=== PATIENT | male | born 1940 | race Caucasian/White ===

== ENCOUNTER → 2018-01-13 | Outpatient (CLI) | payer MEDICARE, OTHER ==
--- NOTE | 2018-01-13 07:57 | MR ---
EXAMINATION TYPE: MR lumbar spine wo con DATE OF EXAM: 01/13/2018 COMPARISON: NONE HISTORY: Low back pain/groin pain per patient since July 2017 going into bilateral buttocks. Arth ropathy of lumbar facet joint or Inflammatory spondylopathy lumbar region per order. TECHNIQUE: Multiplanar, multisequence imaging of the lumbar spine is performed without IV contrast. FINDINGS: Survey images shows artifact from bilateral hip region likely from metallic hardware. Sagit ez images of the lumbar spine show vertebral body heights heights to remain satisfactory. There is g rade 1 anterolisthesis of L5 on S1. Spine is straightened. Multilevel disc desiccation with fairly mo derate to advanced multilevel disc space narrowing is seen. There are posterior disc herniations L1-L 2 and L3-L4 levels effacing anterior thecal sac on sagittal images. The conus medullaris is normal i n position and signal ending superior L1 level. There is moderate to severe multilevel anterior and l ateral spurring. There is heterogeneous increased T1 and T2 signal consistent with Modic type II dege nerative change L2-L3 level. Axial images at T12-L1 level show mild to moderate facet degenerative changes bilaterally. There is m oderate broad disc bulge effacing anterior thecal sac on axial image 29. Bilateral neural foramina re main patent. Axial images at L1-L2 level show severe broad disc bulge with central disc protrusion effacing anteri or thecal sac on axial image 24. There is moderate facet degenerative changes and ligament flavum hyp ertrophy effacing posterior lateral thecal sac. There is moderate right and mild to moderate left-diamond ed neural foraminal narrowing at this level identified. Axial images at L2-L3 level show moderate broad disc bulge effacing anterior thecal sac with mild to moderate facet degenerative changes bilaterally. There is mild to moderate bilateral anterior inferio r neural foraminal narrowing at this level identified. Axial images at L3-L4 level show moderate to severe broad based posterior disc protrusion effacing an terior thecal sac on axial image 14. There is mild facet degenerative changes bilaterally. There is m ild left greater than right anterior-inferior neural foraminal narrowing at this level identified. Axial images at L4-L5 level show moderate facet degenerative changes bilaterally. There is moderate b road disc bulge seen effacing anterior thecal sac. There is slightly more prominent right foraminal a nd lateral disc protrusion component. There is mild left-sided neural foraminal narrowing. There is m oderate to severe right-sided neural foraminal narrowing with encroachment on right L4 nerve felt pre sent on sagittal image 12 and axial image 9. Axial images at L5-S1 level show spondylolisthesis and moderate to advanced facet degenerative change s bilaterally. There is central disc protrusion seen. Spinal canal is preserved. There is moderate to severe left greater than right neural foraminal narrowing with some encroachment inferior left L5 ne rve felt present sagittal image 3 and on the anterior aspect right L5 nerve felt present sagittal ady ge 14. No suspicious retroperitoneal findings are identified. Paraspinal muscle bulk is preserved. IMPRESSION: Straightening of lumbar spine with spondylolisthesis L5-S1 level. Multilevel degenerative changes as detailed above, most prominent spinal canal effacement or stenosis is L1-L2 level. Most p rominent neural foraminal narrowing and encroachment is lower lumbar levels.
== END | disposition home or self-care (01) ==
LOC: RADMRIMAIN 06:52
PROVIDERS: ATTEND Family Medicine
DX: M48.061 Spinal stenosis, lumbar region without neurogenic claudication (principal); M99.73 Connective tissue and disc stenosis of intervertebral foramina of lumbar region; M43.17 Spondylolisthesis, lumbosacral region; M47.817 Spondylosis without myelopathy or radiculopathy, lumbosacral region
CPT/HCPCS: 72148

== ENCOUNTER 2018-08-22 09:14 | Inpatient (IN) | payer MEDICARE, OTHER ==
[2018-08-22] MEDS ORDERED: SODIUM CHLORIDE 0.9% 500 ML 500 ML IV STA (09:51)
[2018-08-22] MEDS ORDERED: METOCLOPRAMIDE 5 MG/ML 2 ML VIAL IVP STA (09:52)
[2018-08-22] MEDS ORDERED: MECLIZINE 12.5 MG TAB PO STA (09:52)
--- NOTE | 2018-08-22 10:10 | ED ---
General Adult HPI - General Chief complaint: Dizziness Stated complaint: vertigo Time Seen by Provider: 08/22/18 09:32 Source: patient, family, RN notes reviewed Mode of arrival: wheelchair Limitations: no limitations - History of Present Illness Initial comments: Patient is a pleasant 78-year-old male presenting to the emergency department with dizziness. Onset of symptoms was 4 days ago. Symptoms onset was fairly sudden. Symptoms do continue. Symptoms are worse with movement and upright position. Symptoms improved with lying down. Patient feels like he is spinning. Patient has had some associated nausea and vomiting. Patient has not been taking in as much oral intake as normal. Patient denies any confusion. Patient denies any weakness. Patient states it has been difficult to walk secondary to dizziness only. states patient did have some slurred speech the first 2 days of symptoms as well as his words and his sentences were mismatched. She has not noticed this in the past 2 days. - Related Data Home Medications Medication Instructions Recorded Confirmed Losartan/Hydrochlorothiazide 1 tab PO DAILY 08/22/18 08/22/18 [Hyzaar 100-12.5 Tablet] Allergies Allergy/AdvReac Type Severity Reaction Status Date / Time No Known Allergies Allergy Verified 08/22/18 11:58 Review of Systems ROS Statement: Those systems with pertinent positive or pertinent negative responses have been documented in the HPI. ROS Other: All systems not noted in ROS Statement are negative. Constitutional: Denies: fever Eyes: Denies: eye pain ENT: Denies: ear pain Respiratory: Denies: cough Cardiovascular: Denies: chest pain Endocrine: Denies: fatigue Gastrointestinal: Reports: nausea, vomiting. Denies: abdominal pain Genitourinary: Denies: dysuria Musculoskeletal: Denies: back pain Skin: Denies: rash Neurological: Reports: as per HPI, vertigo. Denies: headache, weakness Past Medical History Past Medical History: Hypertension History of Any Multi-Drug Resistant Organisms: None Reported Past Surgical History: Hernia Repair, Orthopedic Surgery Additional Past Surgical History / Comment(s): Bilateral Hip Replacement, Knee Replacement Past Psychological History: No Psychological Hx Reported Smoking Status: Never smoker Past Alcohol Use History: Occasional Past Drug Use History: None Reported General Exam Limitations: no limitations General appearance: alert, in no apparent distress Head exam: Present: atraumatic Eye exam: Present: normal appearance, PERRL, EOMI. Absent: nystagmus ENT exam: Present: normal oropharynx Neck exam: Present: normal inspection Respiratory exam: Present: normal lung sounds bilaterally Cardiovascular Exam: Present: regular rate, normal rhythm Expanded Peripheral pulses: 2+: Radial (R), Radial (L), Dorsalis Pedis (R), Dorsalis Pedis (L) GI/Abdominal exam: Present: soft. Absent: tenderness Extremities exam: Present: normal inspection. Absent: pedal edema, calf tenderness Neurological exam: Present: alert, oriented X3, CN II-XII intact. Absent: motor sensory deficit Expanded Neurological exam: Present: protecting the airway Speech: Present: fluid speech Cerebellar function: Finger to Nose: Normal Sensory exam: Upper Extremity Light Touch: Normal, Lower Extremity Light Touch: Normal Motor strength exam: RUE: 5, LUE: 5, RLE: 5, LLE: 5 Eye Response: (4) open spontaneously Motor Response: (6) obeys commands Verbal Response: (5) oriented Psychiatric exam: Present: normal affect, normal mood Skin exam: Present: normal color Course Vital Signs 08/22/18 08/22/18 08/22/18 09:18 09:31 10:00 Temperature 98.3 F Pulse Rate 73 49 L 49 L Respiratory 18 Rate Blood Pressure 161/120 163/99 O2 Sat by Pulse 99 96 95 Oximetry 08/22/18 08/22/18 08/22/18 10:30 11:00 11:30 Temperature Pulse Rate 52 L Respiratory Rate Blood Pressure 170/116 174/108 O2 Sat by Pulse 100 Oximetry EKG Findings - EKG Comments: EKG Findings:: Sinus bradycardia at 48. First-degree AV block IA of 216. QRS 112. QT 462. QTC 412. Left axis. Lateral T wave inversion. Normal QRS. Medical Decision Making - Medical Decision Making Patient reevaluated and resting comfortably in bed. Patient states symptoms around any percent improved. There is some concern for potential posterior infarct and concerned with patient's speech problems. It is felt the patient would best be served to be evaluated by neurology. Case was discussed in detail with Dr. Sarmiento, covering for Dr. agudelo, who admits for Dr. zhao, who will admit. Patient and family are specifically made aware of aneurysms of aorta and need for follow-up with this. - Lab Data Result diagrams: 08/22/18 10:02 08/22/18 10:02 Lab Results 08/22/18 08/22/18 08/22/18 Range/Units 10:02 10:02 10:02 WBC 5.2 (3.8-10.6) k/uL RBC 5.05 (4.30-5.90) m/uL Hgb 13.4 (13.0-17.5) gm/dL Hct 42.7 (39.0-53.0) % MCV 84.5 (80.0-100.0) fL MCH 26.6 (25.0-35.0) pg MCHC 31.4 (31.0-37.0) g/dL RDW 13.2 (11.5-15.5) % Plt Count 197 (150-450) k/uL Neutrophils % 71 % Lymphocytes % 17 % Monocytes % 7 % Eosinophils % 1 % Basophils % 1 % Neutrophils # 3.7 (1.3-7.7) k/uL Lymphocytes # 0.9 L (1.0-4.8) k/uL Monocytes # 0.4 (0-1.0) k/uL Eosinophils # 0.1 (0-0.7) k/uL Basophils # 0.0 (0-0.2) k/uL PT (9.0-12.0) sec INR (<1.2) APTT (22.0-30.0) sec Sodium 140 (137-145) mmol/L Potassium 3.3 L (3.5-5.1) mmol/L Chloride 105 (98-107) mmol/L Carbon Dioxide 28 (22-30) mmol/L Anion Gap 7 mmol/L BUN 12 (9-20) mg/dL Creatinine 0.69 (0.66-1.25) mg/dL Est GFR (CKD-EPI)AfAm >90 (>60 ml/min/1.73 sqM) Est GFR (CKD-EPI)NonAf >90 (>60 ml/min/1.73 sqM) Glucose 102 H (74-99) mg/dL Calcium 9.1 (8.4-10.2) mg/dL Total Bilirubin 0.8 (0.2-1.3) mg/dL AST 25 (17-59) U/L ALT 39 (21-72) U/L Alkaline Phosphatase 39 (38-126) U/L Total Creatine Kinase 167 (55-170) U/L CK-MB (CK-2) 2.0 (0.0-2.4) ng/mL CK-MB (CK-2) Rel Index 1.2 Troponin I <0.012 (0.000-0.034) ng/mL Total Protein 6.0 L (6.3-8.2) g/dL Albumin 3.7 (3.5-5.0) g/dL 08/22/18 Range/Units 10:02 WBC (3.8-10.6) k/uL RBC (4.30-5.90) m/uL Hgb (13.0-17.5) gm/dL Hct (39.0-53.0) % MCV (80.0-100.0) fL MCH (25.0-35.0) pg MCHC (31.0-37.0) g/dL RDW (11.5-15.5) % Plt Count (150-450) k/uL Neutrophils % % Lymphocytes % % Monocytes % % Eosinophils % % Basophils % % Neutrophils # (1.3-7.7) k/uL Lymphocytes # (1.0-4.8) k/uL Monocytes # (0-1.0) k/uL Eosinophils # (0-0.7) k/uL Basophils # (0-0.2) k/uL PT 10.5 (9.0-12.0) sec INR 1.0 (<1.2) APTT 22.4 (22.0-30.0) sec Sodium (137-145) mmol/L Potassium (3.5-5.1) mmol/L Chloride (98-107) mmol/L Carbon Dioxide (22-30) mmol/L Anion Gap mmol/L BUN (9-20) mg/dL Creatinine (0.66-1.25) mg/dL Est GFR (CKD-EPI)AfAm (>60 ml/min/1.73 sqM) Est GFR (CKD-EPI)NonAf (>60 ml/min/1.73 sqM) Glucose (74-99) mg/dL Calcium (8.4-10.2) mg/dL Total Bilirubin (0.2-1.3) mg/dL AST (17-59) U/L ALT (21-72) U/L Alkaline Phosphatase (38-126) U/L Total Creatine Kinase (55-170) U/L CK-MB (CK-2) (0.0-2.4) ng/mL CK-MB (CK-2) Rel Index Troponin I (0.000-0.034) ng/mL Total Protein (6.3-8.2) g/dL Albumin (3.5-5.0) g/dL - Radiology Data Radiology results: report reviewed (Computed tomography scan of the brain shows no acute process. CTA shows mild aneurysmal dilation of aortic arch up to 3.4 cm.), image reviewed (Chest x-ray shows no acute process) Disposition Clinical Impression: Vertigo Disposition: ADMITTED IP TO THIS HOSP Is patient prescribed a controlled substance at d/c from ED?: No Referrals: Wyatt Louise MD [Primary Care Provider] - 1-2 days Decision Time: 12:21
[2018-08-22 10:17] LABS: Basophils % (A) 1 %; Eosinophils # (A) 0.1 k/uL (0-0.7); Eosinophils % (A) 1 %; HCT 42.7 % (39.0-53.0); HGB 13.4 gm/dL (13.0-17.5); Lymphocytes # (A) 0.9 k/uL (1.0-4.8); Lymphocytes % (A) 17 %; MCH 26.6 pg (25.0-35.0); MCHC 31.4 g/dL (31.0-37.0); MCV 84.5 fL (80.0-100.0); Mean Platelet Volume 7.3; Monocytes # (A) 0.4 k/uL (0-1.0); Monocytes % (A) 7 %; Neutrophils # (A) 3.7 k/uL (1.3-7.7); Neutrophils % (A) 71 %; Platelet Count 197 k/uL (150-450); RBC 5.05 m/uL (4.30-5.90); RDW 13.2 % (11.5-15.5); WBC 5.2 k/uL (3.8-10.6)
[2018-08-22 10:23] LABS: Partial Thromboplastin Time 22.4 sec (22.0-30.0); Prothrombin Time 10.5 sec (9.0-12.0)
[2018-08-22 10:25] LABS: ALT 39 U/L (21-72); AST 25 U/L (17-59); Albumin 3.7 g/dL (3.5-5.0); Alkaline Phosphatase 39 U/L (38-126); Anion Gap 7 mmol/L; Blood Urea Nitrogen 12 mg/dL (9-20); Calcium 9.1 mg/dL (8.4-10.2); Carbon Dioxide 28 mmol/L (22-30); Chloride 105 mmol/L (98-107); Glucose 102 mg/dL (74-99); Potassium 3.3 mmol/L (3.5-5.1); Sodium 140 mmol/L (137-145); Total Bilirubin 0.8 mg/dL (0.2-1.3)
[2018-08-22 10:42] LABS: Creatine Kinase 167 U/L (55-170)
[2018-08-22] MEDS: SODIUM CHLORIDE 0.9% 1,000 ML IV STA ×2 (10:47→17:28)
[2018-08-22 10:55] LABS: Troponin I <0.012 ng/mL (0.000-0.034)
[2018-08-22] MEDS ORDERED: ENALAPRILAT 1.25 MG/ML 1 ML VIAL IVP STA (10:58)
--- NOTE | 2018-08-22 11:40 | XR ---
EXAMINATION TYPE: XR chest 2V DATE OF EXAM: 08/22/2018 HISTORY: altered mental status. REFERENCE: None. FINDINGS: There are senescent changes within the lungs. The heart is not enlarged. Pleural spaces are clear. IMPRESSION: NO ACUTE INTRATHORACIC ABNORMALITY.
--- NOTE | 2018-08-22 11:59 | CT ---
EXAMINATION TYPE: CT brain wo con DATE OF EXAM: 08/22/2018 COMPARISON: NONE HISTORY: VERTIGO CT DLP: 1251.0 mGycm Automated exposure control for dose reduction was used. FINDINGS: Central structures are midline. There is no evidence of hydrocephalus. No acute focal lesion, mass ef fect or midline shift is seen. I do not see evidence of intracranial blood. Visualized portions of the paranasal sinuses and mastoids are clear. IMPRESSION: NO ACUTE INTRACRANIAL ABNORMALITY.
--- NOTE | 2018-08-22 12:08 | CT ---
EXAMINATION TYPE: CT angio head neck DATE OF EXAM: 08/22/2018 HISTORY: VERTIGO/ NEURO DEFICITS COMPARISON: None. CT DLP: 515 mGycm. Automated Exposure Control for Dose Reduction was Utilized. TECHNIQUE: CTA scan of the neck is performed with IV Contrast, patient injected with 65 mL of Isovue 370, axial images are obtained, coronal and sagittal reformatted images are reviewed. Three-D recons tructed images are created on an independent workstation and reviewed. FINDINGS: Visualized portions of the lungs are clear. There is aneurysmal dilatation of the proximal aortic arch which measures 3.4 cm. There is aneurysmal dilatation of the distal aortic arch which measures 3.3 cm. Soft tissue views of the neck are unremarkable. The major salivary glands appear unremarkable. There is no significant adenopathy. There is a retrograde listhesis of C4 on C5 and C5 on C6. There is marked hypertrophic spondylosis at these 2 levels. Atlantoaxial relationships are normal. There is disc space loss most marked at C4-5, C5-6 and C6-7. No definite protrusion is seen. Visualized portions of the paranasal sinuses and mastoids are clear. There is underaeration of the ri ght-sided mastoids which may be due to chronic right-sided mastoiditis. There is a normal origin of the great vessels. The right vertebral artery is dominant. There is no si gnificant atheromatous plaque in either carotid bifurcations. There is no significant stenosis in eit her bifurcation. 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 There is normal arborization of the middle cerebral arteries bilaterally. The posteri or circulation has a normal appearance. There is no sizable aneurysm. IMPRESSION: 1. NO SIGNIFICANT CAROTID STENOSIS. 2. NORMAL-APPEARING CTA OF THE [place] RESERVATION OF [place]. 3. THORACIC AORTIC ANEURYSM.
[2018-08-22] MEDS ORDERED: ASPIRIN 325 MG TAB PO STA (12:21)
[2018-08-22] MEDS ORDERED: SODIUM CHLORIDE 0.9% 1,000 ML IV SCH (12:30)
[2018-08-22] MEDS ORDERED: HYDROCHLOROTHIAZIDE 12.5 MG CAP PO SCH (12:30)
[2018-08-22] MEDS: LOSARTAN 50 MG TAB PO SCH (13:05)
--- NOTE | 2018-08-22 14:51 | P.HPIM ---
History of Present Illness Chief Complaint: Dizziness 78-year-old male with history of hypertension complaining of dizziness that started approximately 4-5 days ago. Patient states that he was in usual state of health when he started developing dizziness this he describes as the completely spinning sensation but sensation of falling through the ground. Necessarily did not experience sensation of room spinning but rather him spinning. This was accompanied by nausea. He describes this episodes being quite intense when they started lasting couple minutes and then subsiding on its own. He felt that particularly certain movements of the head would bring them up like looking toward the right side or going from sitting up down to laying down or sometimes when he didn't get up and turn his head. He also noticed when he is turning in the bed cessation will come back. M eventually after that first day symptoms improved and there were minimal but then then again on the day of admission reoccurred in a similar fashion described ear that point she decided to come to emergency department He denies any double vision, headache, hearing problems, tinnitus, tremor, difficulties in ambulation or neck stiffness he feels that his speech did not change but he was told by his that he might have some changes in his speech. He also feels that sometimes his heart for him to find the right words. He denies any recent illnesses URI-like symptoms sinusitis or earaches. He denies any focal weakness in any of the arms or limbs. In emergency department he was found to have elevated blood pressure 170s. His heart rate was in 50s although he has measurements in 70s. There are no any electrolyte these balances. EKG showed sinus bradycardia with first-degree AV block. CT of the head was unremarkable CT of the head was without any obstructions. He was then admitted for further neurological evaluation. Review of Systems Constitutional: Patient reports no fever, no chills, no weight changes, no change in appetite Eyes: Patient reports no double vision, no visual changes ENT: Patient reports no rhinorrhea, no post nasal drip, no sore throat Cardiovascular: Patient reports no chest, no edema, no palpitations, no syncope , no orthopnea, no paroxysmal nocturnal dyspnea. Respiratory: Patient reports no dyspnea, no cough, no wheeze Gastrointestinal: Patient reports no nausea, no vomiting, no constipation, no diarrhea Genitourinary: Patient reports no dysuria, no urinary frequency, no hematuria. Musculoskeletal: Patient reports no unusual joint pain, no joint swelling or weakness. Patient reports no muscular pain. Psychiatric: Patient reports no changes in mood, no sleeping problems. Patient reports no changes in memory. Endocrine: Patient reports no thirst, no polyuria, no cold intolerance, no heat intolerance. Neurological: As per HPI Heme/Lymphatic: Patient reports no easy bruising, no bleeding tendency, no lymphadenopathy. Allergic/ Immunologic: Patient reports no recent allergic reactions or immunologic history. Skin: Patient reports no rashes or unusual lesions. Past Medical History Past Medical History: Hypertension History of Any Multi-Drug Resistant Organisms: None Reported Past Surgical History: Hernia Repair, Orthopedic Surgery Additional Past Surgical History / Comment(s): Bilateral Hip Replacement, Knee Replacement Past Psychological History: No Psychological Hx Reported Smoking Status: Never smoker Past Alcohol Use History: Occasional Past Drug Use History: None Reported Medications and Allergies Home Medications Medication Instructions Recorded Confirmed Type Losartan/Hydrochlorothiazide 1 tab PO DAILY 08/22/18 08/22/18 History [Hyzaar 100-12.5 Tablet] Allergies Allergy/AdvReac Type Severity Reaction Status Date / Time No Known Allergies Allergy Verified 08/22/18 11:58 Physical Exam Vitals: Vital Signs Temp Pulse Resp BP Pulse Ox 08/22/18 11:30 100 08/22/18 11:00 174/108 08/22/18 10:30 52 L 170/116 08/22/18 10:00 49 L 163/99 95 08/22/18 09:31 49 L 96 08/22/18 09:18 98.3 F 73 18 161/120 99 Intake and Output 08/21/18 08/22/18 08/22/18 22:59 06:59 14:59 Other: Weight 108.862 kg Vital Signs: I have reviewed the vital signs. GENERAL: Well-nourished, Well-developed , no apparent distress, cooperative Eyes: PERRL, extraoculry movements intact, clear conjunctiva Head: : Atraumatic external nose and ears, oropharyngeal mucosa is moist without lesions or exudates Neck: Symmetric, trachea midline, No thyromegaly, no masses or neck vain pulsation, no neck rigidity CVS: +S1/S2, No murmurs or gallops. Peripheral pulses 2+ and equal in all extremities. RESP: Unlabored respiratory effort. Clear to auscultation bilaterally. Abdomen: Bowel sounds present in all 4 quadrants, Soft to palpation, Nontender/ Nondistended, No hepatosplenomegaly, no hernias or masses, no CVA tnderness Musculoskeletal: Extremities w/o deformity, No cyanosis or clubbing, no joint swelling Skin: Warm, Dry. No rashes or lesions Neuro: chemical tester II-XII grossly intact, motor strenght 5/5 i upper and lower extremities, no clonus, patellar DTRs 2+ and sympetrical On [place]-Hallpike maneuver patient did report some dizziness and nausea with face turning to the left but I was not able to observe any nystagmus at that point Of note the the maneuver was of limited success due to difficulties for patient to follow and participated during this exam Psych: Awake, Alert, & Oriented (AAO) x3 Appropriate mood and affect Results CBC & Chem 7: 08/22/18 10:02 08/22/18 10:02 Labs: Abnormal Lab Results - Last 24 Hours (Table) 08/22/18 08/22/18 Range/Units 10:02 10:02 Lymphocytes # 0.9 L (1.0-4.8) k/uL Potassium 3.3 L (3.5-5.1) mmol/L Glucose 102 H (74-99) mg/dL Total Protein 6.0 L (6.3-8.2) g/dL Assessment and Plan Assessment: 1. Dizziness Due to vertigo all the patient's description is not completely typical. It seems that is connected with patient certain positioning of the head and turning of his head which brings concern for BPPV. Of note patient had similar episodes of dizziness many years ago that resolved spontaneously. I couldn't exacerbate any nystagmus with Mono-Hallpike maneuver all the patient was poorly cooperative Neurology consultation Symptomatic treatment Fall precautions Orthostatic vital signs Physical and occupational therapy Rule out vertebrobasilar insufficiency We'll try to perform Oleksandr maneuvers once patient better situated in the room and more cooperative 2. Hypertension benign essential No need for aggressive treatment of blood pressure this point We will continue his home medications 3. Bradycardia Due to sinus bradycardia first-degree AV block on EKG No old EKG to compare but patient had some measurements of heart rate in the 70s hence I think he does have chronotropic competency Observe on telemetry Patient is a full code His is a surrogate decision maker Expected 2 or or more midnight stay
[2018-08-22] MEDS ORDERED: POTASSIUM BICARBONATE/CIT AC 20 MEQ TABLET.EFF PO ONE (16:01)
--- NOTE | 2018-08-22 16:45 | P.CNNES ---
History of Present Illness Consult date: 08/22/18 History of Present Illness: The patient is a 78-year-old right-handed male who states that on Friday few days ago he experienced vertigo which she describes as a loss of balance inability to walk straight and having to hold onto sawant in order to walk and feeling a sense of disequilibrium. This subsided slightly and then came back on Friday and continued. According to the patient his noticed some slurred speech on Friday which was transient. Currently the patient is experiencing dizziness with head movement. States if he keeps still he does not have any dizzy feeling. If he moves his head to the right or left he experiences a sense of disequilibrium which is nauseating. He has vomited. He denied any focal weakness or numbness. He denied any visual changes or double vision. He states he stopped taking his blood pressure pills one and half weeks ago because he ran out. Last night he took his first pill again after 1-1 /2 weeks. He came into the emergency room today with these complaints. He denied any recent flulike illness or sinus trouble. He does have chronic sinusitis. EKG showed sinus bradycardia with first degree AV block. He had a CAT scan of the brain which was unremarkable. He had a CT angiogram of his head and neck. CT of the neck revealed some retrograde listhesis at in the cervical spine and there was no carotid stenosis. There was incidental note of thoracic aortic aneurysm. MRA of the [place] was normal the patient reports a similar episode of dizziness about 10 years ago which lasted very briefly Review of Systems Constitutional: Denies chills, Denies fever Respiratory: Denies cough Gastrointestinal: Denies abdominal pain, Denies diarrhea, Denies nausea, Denies vomiting Musculoskeletal: Denies myalgias Neurological: Denies numbness, Denies weakness Psychiatric: Denies anxiety, Denies depression Endocrine: Denies fatigue, Denies weight change Past Medical History Past Medical History: Hypertension History of Any Multi-Drug Resistant Organisms: None Reported Past Surgical History: Hernia Repair, Orthopedic Surgery Additional Past Surgical History / Comment(s): Bilateral Hip Replacement, Knee Replacement Past Psychological History: No Psychological Hx Reported Smoking Status: Never smoker Past Alcohol Use History: Occasional Past Drug Use History: None Reported Medications and Allergies Home Medications Medication Instructions Recorded Confirmed Type Losartan/Hydrochlorothiazide 1 tab PO DAILY 08/22/18 08/22/18 History [Hyzaar 100-12.5 Tablet] Allergies Allergy/AdvReac Type Severity Reaction Status Date / Time No Known Allergies Allergy Verified 08/22/18 11:58 Physical Examination - Vital Signs Vital Signs: Vital Signs Temp Pulse Pulse Resp BP BP Pulse Ox 08/22/18 15:45 97.9 F 44 L 16 176/89 97 08/22/18 15:07 51 L 18 159/90 95 08/22/18 11:30 100 08/22/18 11:00 174/108 08/22/18 10:30 52 L 170/116 08/22/18 10:00 49 L 163/99 95 08/22/18 09:31 49 L 96 08/22/18 09:18 98.3 F 73 18 161/120 99 Intake and Output 08/22/18 08/22/18 08/22/18 06:59 14:59 22:59 Other: Weight 108.862 kg - Constitutional General appearance: cooperative - EENT EENT: PERRL, hearing intact - Respiratory Respiratory: lungs clear - Cardiovascular Cardiovascular: regular rate, normal S1, normal S2 - Neurologic Neurologic examination: Mental status: He was awake alert and oriented. He answered questions appropriately. There is no aphasia or dysarthria. Next Cranial nerve examination: He lives 2 through 12 grossly intact next Motor examination: 5 out of 5 throughout next Sensory examination: Slightly decreased light touch left lee Coordination: Finger to nose [id number] intact next Deep tendon reflexes: 2+ and symmetric in the upper extremities Gait: Not tested Results - Laboratory Findings CBC and BMP: 08/22/18 10:02 08/22/18 10:02 Abnormal Lab Findings: Abnormal Labs 08/22/18 08/22/18 10:02 10:02 Lymphocytes # 0.9 L Potassium 3.3 L Glucose 102 H Total Protein 6.0 L Assessment and Plan (1) Vertigo Current Visit: Yes Status: Acute SNOMED Code(s): 177466411 (2) TIA (transient ischemic attack) Current Visit: Yes Status: Acute Code(s): G45.9 - TRANSIENT CEREBRAL ISCHEMIC ATTACK, UNSPECIFIED SNOMED Code(s): 475305513 Plan: The patient is a 78-year-old man who presents to the hospital with positional dizziness. This dizziness is likely secondary to a peripheral vestibular disturbance. Did however have an episode several days back of slurred speech and he has been off of his blood pressure medications for 1-1/2 weeks. That episode could've been a TIA and he has been admitted to the hospital for further workup. He had a CAT scan of the brain which was normal. His neurologic examination is nonfocal. His CT angiogram showed no carotid stenosis. There was evidence of a thoracic aortic aneurysm. Recommend MRI of the brain and an echocardiogram. Recommend baby aspirin as tolerated. Continue close neuro checks. Recommend antevert when necessary for dizziness, and salt reduced diet
[2018-08-22 17:18] VITALS: BMI 29.2
[2018-08-23 06:52] LABS: Anion Gap 6 mmol/L; Blood Urea Nitrogen 17 mg/dL (9-20); Calcium 8.9 mg/dL (8.4-10.2); Carbon Dioxide 27 mmol/L (22-30); Chloride 106 mmol/L (98-107); Cholesterol 115 mg/dL (<200); Glucose 94 mg/dL (74-99); HDL Cholesterol 41 mg/dL (40-60); LDL Cholesterol,Calculated 57 mg/dL (0-99); Potassium 3.7 mmol/L (3.5-5.1); Sodium 139 mmol/L (137-145); Triglycerides 83 mg/dL (<150)
[2018-08-23] MEDS: ASPIRIN 81 MG PO SCH (08:07)
[2018-08-23] MEDS: LOSARTAN 50 MG TAB PO SCH (08:07)
[2018-08-23] MEDS ORDERED: ASPIRIN 325 MG TAB PO SCH (09:00)
--- NOTE | 2018-08-23 13:02 | P.PN ---
Subjective Progress Note Date: 08/23/18 Principal diagnosis: Dizziness Patient is doing much better today, no further episodes of vertigo or dizziness. He was ambulating back and forth to the bathroom this morning and didn't have much trouble with that. No chest pain or shortness of breath, no nausea or vomiting. Objective - Vital Signs Vital signs: Vital Signs Temp 97.8 F 08/23/18 08:00 Pulse 63 08/23/18 11:30 Resp 16 08/23/18 11:30 BP 153/91 08/23/18 11:30 Pulse Ox 95 08/23/18 11:30 Intake & Output 08/22/18 08/23/18 08/23/18 18:59 06:59 18:59 Intake Total 80 Balance 80 Weight 108.862 kg 106.5 kg Intake: Oral 80 Other: Voiding Method Toilet Toilet # Voids 1 - Exam Constitutional: No acute distress, conversant, pleasant Eyes:Anicteric sclerae, moist conjunctiva, no lid-lag, PERRLA, ENMT: Oropharynx clear, no erythema, exudates Neck: Supple, FROM, no masses, or JVD, No carotid bruits, No thyromegaly Lungs: Clear to auscultation, Clear to percussion, Normal respiratory effort, no accessory muscle use Cardiovascular: Heart regular in rate and rhythm, No murmurs, gallops, or rubs, No peripheral edema Abdominal: Soft, Nontender, no guarding, rebound or rigidity, Normoactive bowel sounds, No hepatomegaly, No splenomegaly, No palpable mass Skin: Normal temperature, tone, texture, turgor, no induration, No subcutaneous nodules, No rash, lesions, No ulcers Extremities: No digital cyanosis, No clubbing, Pedal pulses intact and symmetrical, Radial pulses intact and symmetrical, No calf tenderness Psychiatric: Alert and oriented to person, place and time, appropriate affect, intact judgement Neuro: Muscles Strength 5/5 in all 4 extremities, Sensation to light touch grossly present throughout, Cranial nerves II-XII grossly intact, no focal sensory deficits - Labs CBC & Chem 7: 08/22/18 10:02 08/23/18 06:08 Assessment and Plan Plan: 1. Vertigo likely peripheral secondary to vestibular etiology possibly benign positional vertigo versus vestibular neuritis Seen by neurology started on meclizine Rule out vertebrobasilar insufficiency CT angiogram of the head and neck reviewed Awaiting MRI of the brain and echo Physical and occupational therapy 2. Hypertension benign essential Continue Hyzaar Anticipate discharge in a.m. if brain MRI ok
--- NOTE | 2018-08-23 16:31 | P.PN ---
Subjective Progress Note Date: 08/23/18 The patient is a 78-year-old man who was admitted to the hospital yesterday with 4 day history of vertigo. He is on laying in bed in no acute distress today and states he is doing much better. He has only slight dizziness today. He states that he would not walk today and moved and took a shower and he felt better. He is able to move about Bend his head and do his usual activities again. He has had an echocardiogram results are pending. He is waiting for MRI of the brain. Objective - Vital Signs Vital signs: Vital Signs Temp 97.8 F 08/23/18 08:00 Pulse 63 08/23/18 11:30 Resp 16 08/23/18 11:30 BP 153/91 08/23/18 11:30 Pulse Ox 95 08/23/18 11:30 Intake & Output 08/22/18 08/23/18 08/23/18 18:59 06:59 18:59 Intake Total 255 Balance 255 Weight 108.862 kg 106.5 kg Intake: Oral 255 Other: Voiding Method Toilet Toilet # Voids 1 1 - Constitutional General appearance: Present: average body habitus - EENT ENT: Present: hearing grossly normal - Respiratory Respiratory: bilateral: CTA - Cardiovascular Rhythm: regular - Neurologic Neurologic Comment(s): Neurologic examination: Mental status: He was awake alert and oriented. His speech was fluent. There is no a aphasia or dysarthria. Cranial nerve examination: Cranial nerves II through XII grossly intact next Motor examination: 5 out of 5 throughout Coordination: Finger to nose intact - Labs CBC & Chem 7: 08/22/18 10:02 08/23/18 06:08 Assessment and Plan (1) Vertigo Current Visit: Yes Status: Acute SNOMED Code(s): 096805413 (2) TIA (transient ischemic attack) Current Visit: Yes Status: Acute Code(s): G45.9 - TRANSIENT CEREBRAL ISCHEMIC ATTACK, UNSPECIFIED SNOMED Code(s): 249264186 Plan: The patient is a 78-year-old man who presents to the hospital with positional dizziness. This dizziness is likely secondary to a peripheral vestibular disturbance versus TIA. He is doing much better today and he is able to move about without vertigo. He is awaiting MRI of the brain. He has had an echocardiogram and results are pending. He has been placed on aspirin. His been seen by physical therapy.
--- NOTE | 2018-08-23 17:19 | ECHOF ---
Referral Reason:Thrombus MEASUREMENTS -------- HEIGHT: 193.0 cm WEIGHT: 108.9 kg BP: 175/108 RVIDd: 3.4 cm (< 3.3) IVSd: 1.5 cm (0.6 - 1.1) LVIDd: 4.2 cm (3.9 - 5.3) LVPWd: 1.5 cm (0.6 - 1.1) IVSs: 1.9 cm LVIDs: 3.1 cm LVPWs: 1.9 cm LA Diam: 3.5 cm (2.7 - 3.8) LAESV Index (A-L): 28.17 ml/m Ao Diam: 3.1 cm (2.0 - 3.7) AV Cusp: 2.4 cm (1.5 - 2.6) EPSS: 0.8 cm MV E Nicolas: 0.63 m/s MV DecT: 226 ms MV A Nicolas: 0.81 m/s MV E/A Ratio: 0.77 MV EF SLOPE: 74.40 mm/s (70 - 150) MV EXCURSION: 2.27 cm (> 18.000) FINDINGS -------- Sinus rhythm. This was a technically good study. The left ventricular size is normal. There is moderate concentric left ventricular hypertrophy. O verall left ventricular systolic function is normal with, an EF between 55 - 60 %. The right ventricle is normal in size. Normal LA size by volume 22+/-6 ml/m2. The right atrium is normal in size. Aortic valve is trileaflet and is mildly thickened. The mitral valve leaflets are mildly thickened. Mild mitral annular calcification present. The tricuspid valve appears structurally normal. Trace tricuspid regurgitation present. Trace/mild (physiologic) pulmonic regurgitation. The aortic root size is normal. Normal inferior vena cava with normal inspiratory collapse consistent with estimated right atrial pre ssure of 5 mmHg. There is no pericardial effusion. CONCLUSIONS -------- 1. Sinus rhythm. 2. This was a technically good study. 3. The left ventricular size is normal. 4. There is moderate concentric left ventricular hypertrophy. 5. Overall left ventricular systolic function is normal with, an EF between 55 - 60 %. 6. The right ventricle is normal in size. 7. Normal LA size by volume 22+/-6 ml/m2. 8. The right atrium is normal in size. 9. Aortic valve is trileaflet and is mildly thickened. 10. The mitral valve leaflets are mildly thickened. 11. Mild mitral annular calcification present. 12. The tricuspid valve appears structurally normal. 13. Trace tricuspid regurgitation present. 14. Trace/mild (physiologic) pulmonic regurgitation. 15. The aortic root size is normal. 16. Normal inferior vena cava with normal inspiratory collapse consistent with estimated right atrial pressure of 5 mmHg. 17. There is no pericardial effusion. EXTERNAL [employer]ER: PRISCILA Brand
--- NOTE | 2018-08-24 07:44 | MR ---
EXAMINATION TYPE: MR brain wo con DATE OF EXAM: 08/24/2018 COMPARISON: 08/22/2018 CT brain HISTORY: Dizziness CONTRAST: Performed utilizing 0 mL intravenous Gadavist gadolinium contrast. TECHNIQUE: Multiplanar, multiecho imaging on a 3.0 O[place] magnet is performed through the brain. Stud y is not performed within 24 hours of arrival to the hospital. The craniovertebral junction is normal. The pituitary is normal. Diffusion-weighted imaging is performed. No abnormal hyperintensity is present to suggest an acute i ntracranial infarct or acute ischemic change. Optic chiasm is visualized is normal. Signal within the brain appears within normal limits. Ventricles and sulci are appropriate for the patient age. There may be some mild age-related atrophy present. There is some mucosal thickening within left ethmoid air cells. Minimal mucosal thickening is within frontal sinuses. Paranasal sinuses mastoid air cells are otherwise clear. IMPRESSIONS: 1. Some minimal age-related atrophy. 2. No suspicious acute intracranial process.
[2018-08-24] MEDS: LOSARTAN 50 MG TAB PO SCH (08:43)
[2018-08-24] MEDS: ASPIRIN 81 MG PO SCH (08:43)
[2018-08-24 08:56] VITALS: RESP 18
[2018-08-24] MEDS ORDERED: amLODIPine 5 MG TAB PO STA (11:27)
[2018-08-24 15:18] VITALS: BP 166/85; PULSE 83; TEMP 97.5
== END 2018-08-24 16:39 | disposition home or self-care (01) | DRG 149 ==
LOC: EC 09:14 → 3SCARD 12:21 → OBSVTOIN 08-23 08:31
PROVIDERS: ADMIT Internal Medicine; ATTEND Hospitalist
DX: H81.399 Other peripheral vertigo, unspecified ear (principal); G45.9 Transient cerebral ischemic attack, unspecified; E87.6 Hypokalemia; I10 Essential (primary) hypertension; I44.0 Atrioventricular block, first degree; I71.2 Thoracic aortic aneurysm, without rupture; J32.9 Chronic sinusitis, unspecified; R00.1 Bradycardia, unspecified; Z79.899 Other long term (current) drug therapy; Z96.643 Presence of artificial hip joint, bilateral; Z96.659 Presence of unspecified artificial knee joint
CPT/HCPCS: 36415; 70450; 70496; 70498; 70551; 71046; 80048; 80053; 80061; 82550; 82553; 84484; 85025; 85610; 85730; 93005; 93306; 96361; 96374; 96375; 99285

== ENCOUNTER → 2018-10-08 | Outpatient (CLI) | payer MEDICARE, OTHER ==
[2018-10-08 16:05] LABS: Appearance,Urine Clear (Clear); Bilirubin,Urine Negative (Negative); Blood,Urine Negative (Negative); Color,Urine Light Yellow; Glucose,Urine (UA) Negative (Negative); Ketones,Urine Negative (Negative); Leukocyte Esterase,Urine Negative (Negative); Nitrite,Urine Negative (Negative); Protein,Urine Negative (Negative); Urobilinogen,Urine <2.0 mg/dL (<2.0)
[2018-10-08 16:07] LABS: HCT 40.3 % (39.0-53.0); HGB 12.8 gm/dL (13.0-17.5); MCH 27.8 pg (25.0-35.0); MCHC 31.8 g/dL (31.0-37.0); MCV 87.6 fL (80.0-100.0); Mean Platelet Volume 8.1; Platelet Count 165 k/uL (150-450); RDW 13.6 % (11.5-15.5)
[2018-10-08 16:14] LABS: INR 0.9 (<1.2); Partial Thromboplastin Time 22.9 sec (22.0-30.0)
[2018-10-08 16:18] LABS: Anion Gap 7 mmol/L; Blood Urea Nitrogen 20 mg/dL (9-20); Carbon Dioxide 28 mmol/L (22-30); Chloride 105 mmol/L (98-107); Potassium 4.4 mmol/L (3.5-5.1); Sodium 140 mmol/L (137-145)
== END ==
LOC: LABPAT 15:07
PROVIDERS: ATTEND Orthopaedic Surgery Sports Medicine
DX: Z01.812 Encounter for preprocedural laboratory examination (principal)
CPT/HCPCS: 36415; 80051; 81003; 82565; 84520; 85027; 85610; 85730; 87070

== ENCOUNTER 2018-10-28 11:50 | Inpatient (IN) | payer MEDICARE, OTHER ==
[2018-10-12 09:56] VITALS: BMI 29.8
[~2018-10-28 11:50] MED LIST: ACETAMINOPHEN TAB 500 MG TAB PO ONE; LACTATED RINGERS 1,000 ML IV SCH; LIDOCAINE 1% 20 ML VIAL (10MG/ML) FOR IV START INTRADERMA PRN; MELOXICAM 7.5 MG TAB PO ONE; MIDAZOLAM (PF) 2 MG/2 ML VIAL IV PRN; ONDANSETRON 4 MG/2 ML VIAL IVP ONE; ROPIVACAINE 246.25 MG, EPINEPHrine 0.5 MG, KETOROLAC 30 MG, cloNIDine HCL/PF 80 MCG, WA... MISCELLANE ONE; SCOPOLAMINE 1.5MG/72HR PATCH TRANSDERM ONE; TRANEXAMIC ACID 1,000 MG in SODIUM CHLORIDE 0.9% 100 ML IVPB ONE; ceFAZolin IN SWFI 2 GM/20 ML SYRINGE IVP ONE
[2018-10-28] MEDS ORDERED: ACETAMINOPHEN TAB 325 MG TAB PO PRN (12:13)
[2018-10-28] MEDS ORDERED: HYDROcodone/APAP 7.5-325MG 1 EACH TAB PO PRN (12:13)
[2018-10-28] MEDS ORDERED: traMADol 50 MG TAB PO PRN (12:13)
[2018-10-28] MEDS ORDERED: DIAZEPAM 5 MG TAB PO PRN (12:13)
[2018-10-28] MEDS ORDERED: BISACODYL 10 MG SUPP RECTAL PRN (12:13)
[2018-10-28] MEDS ORDERED: HYDROcodone/APAP 10-325MG 1 EACH TAB PO PRN (12:13)
[2018-10-28] MEDS ORDERED: TEMAZEPAM 15 MG CAP PO PRN (12:13)
[2018-10-28] MEDS ORDERED: HYDROcodone/APAP 5-325MG 1 EACH TAB PO PRN (12:13)
[2018-10-28] MEDS ORDERED: NALOXONE 0.4 MG/ML 1 ML VIAL IV PRN (12:13)
[2018-10-28] MEDS ORDERED: NA PHOS,M-B/NA PHOS,DI-BA 133 ML ENEMA RECTAL PRN (12:13)
[2018-10-28] MEDS ORDERED: ONDANSETRON 4 MG/2 ML VIAL IVP PRN (12:13)
[2018-10-28] MEDS ORDERED: MAGNESIUM HYDROXIDE 2,400 MG/10 ML CUP PO PRN (12:13)
[2018-10-28] MEDS ORDERED: HYDROmorphone 0.5 MG/0.5 ML SYRINGE IVP PRN ×3 (12:13)
[2018-10-28] MEDS: LACTATED RINGERS 1,000 ML IV SCH ×2 (12:56→22:31)
[2018-10-28] MEDS ORDERED: NEOSTIGMINE 1 MG/ML 10 ML VIAL ONE (13:47)
[2018-10-28] MEDS ORDERED: fentaNYL (PF) 50 MCG/ML 2 ML AMP ONE (13:47)
[2018-10-28] MEDS ORDERED: SODIUM CHLORIDE 0.9% 100 ML BAG ONE (13:47)
[2018-10-28] MEDS ORDERED: TRANEXAMIC ACID 1,000 MG/10 ML VIAL ONE (13:47)
[2018-10-28] MEDS ORDERED: HYDROmorphone (PF) 1 MG/ML ONE (13:47)
[2018-10-28] MEDS ORDERED: GLYCOPYRROLATE 0.2 MG/ML 2 ML VIAL ONE (13:47)
[2018-10-28] MEDS ORDERED: ROCURONIUM BROMIDE 10 MG/ML 10 ML VIAL IV ONE (13:47)
[2018-10-28] MEDS ORDERED: LIDOCAINE 1% INJ 10MG/ML (20 ML MDV) ONE (13:47)
[2018-10-28] MEDS ORDERED: MIDAZOLAM 2 MG/2 ML VIAL ONE (13:47)
[2018-10-28] MEDS ORDERED: PROPOFOL 10 MG/ML 20 ML VIAL IV ONE (13:47)
[2018-10-28] MEDS ORDERED: ceFAZolin 3,000 MG in SODIUM CHLORIDE 0.9% IRRIGATIO 3,000 ML IRRIGATION ONE (14:34)
[2018-10-28] MEDS ORDERED: LACTATED RINGERS 1,000 ML IV ONE (14:34)
[2018-10-28] MEDS: HYDROmorphone 0.5 MG/0.5 ML SYRINGE IVP PRN ×4 (16:15→16:40)
--- NOTE | 2018-10-28 17:32 | XR ---
EXAMINATION TYPE: XR knee limited RT DATE OF EXAM: 10/28/2018 COMPARISON: NONE HISTORY: Postop knee surgery TECHNIQUE: 2 views FINDINGS: There is a right knee prosthesis. Components appear in anatomic position. IMPRESSION: No complicating process seen.
--- NOTE | 2018-10-28 17:49 | OP ---
OPERATIVE REPORT DATE OF PROCEDURE: 10/28/2018. SURGEON: Phu Cruz M.D. DENTAL CERAMIST ASSISTANT: Jerardo APODACA. PREOPERATIVE DIAGNOSIS: Right knee osteoarthrosis. POSTOPERATIVE DIAGNOSIS: Right knee osteoarthrosis. OPERATION: Right total knee arthroplasty. ANESTHESIA: General endotracheal. ESTIMATED BLOOD LOSS: 100 mL. TOURNIQUET TIME: 53 minutes at 250 mmHg. COMPLICATIONS: None apparent. DRAINS: None. DISPOSITION: Postanesthesia care unit. INDICATIONS: Harpreet is a 78-year-old male with longstanding history of right knee pain. History and physical examination are consist with advanced right knee osteoarthrosis. He has been through fairly significant nonoperative management up to this point. Further treatment options were discussed and he has decided to go forward with a right total knee arthroplasty. Risks of procedure were discussed with him in detail. These risks include, but are not limited to risk of infection, nerve damage, bleeding, pain, and a small risk of deep vein thrombosis which could lead to fatal pulmonary embolism. There is also risk of loosening of the implant which could require revision operation. The patient understands these risks. All of his questions were answered to his satisfaction. Appropriate informed consent was obtained. DESCRIPTION OF THE PROCEDURE: The patient was identified in the preoperative holding area. Surgical sites marked by both the patient and myself. He was given 2 g of Ancef IV for prophylactic purposes. He was then transferred to the operative suite, where he was placed on the operative table. General anesthetic was administered and dosed per the anesthesia without apparent without apparent complication. Examination under anesthesia was then performed. The patient was 2-3 degrees shy of full extension. 100 degrees of flexion. The medial collateral ligament, lateral collateral ligament and posterior cruciate ligaments were stable. The tourniquet was then placed high on the right upper thigh well-padded in preparation for surgery. The patient's right lower extremity was then prepped and draped in usual sterile fashion. Standard surgical pause was undertaken to ensure that we were operating on the correct site and appropriate preoperative antibiotics were given. All staff in the room in agreement and we proceeded. The outlines of the patella were marked with a surgical pen. A planned 12 cm vertical incision centered over the patella was marked with a surgical pen. Leg was then exsanguinated with an Esmarch dressing. The knee was then flexed and tourniquet inflated to 250 mmHg. The total tourniquet time for the procedure was 53 minutes. Incision was then made with a 10 blade scalpel. Dissection was carried down sharply overlying fascia. Great care was taken to minimize the skin flaps. The knee was then exposed using a standard medial parapatellar approach. A small cuff of quadriceps tendon was then left for suturing. Using quite a bit of valgus preoperatively, a very minimal medial release was made. This was done just for placement of the retractors. The medial meniscus was then excised as well. The lateral meniscus was also released anteriorly. The leg was then externally rotated. The patella was everted. The knee was flexed. The retractors were then placed to protect the collateral ligaments. I then proceeded to remove the infrapatellar fat pad. This was excised sharply tangentially with the fibers of the patellar tendon. I then proceeded to remove peripheral osteophytes. This was done with a rongeur. I then proceeded with the distal femoral resection. He did have near full extension. A planned 9 mm resection was then done. The femoral canal was then entered in the midline of the femur. Approximately 10 mm anterior to the origin of the posterior cruciate ligament. The gregory was then advanced down the center of the femur and placed intramedullary. Based on preoperative radiographs, the angle between the anatomic and mechanical axis of the femur was approximately 4-5 degrees. The valgus angle of the distal femoral cutting guide was then set at 4 degrees for the right knee. The distal femoral cutting guide was then advanced over the intramedullary gregory. This was seated firmly against the femur. I then as mentioned planned to take 9 mm off the distal femur. The cutting block was then secured onto the femur with pins. The jig was removed. The distal femoral cut was made through the slot of the block. The pins were then removed. The distal femoral cutting block was removed. The accuracy of the distal femoral cuts was checked with 2 flat bars. I then proceeded with femoral sizing. The posterior referencing sizing guide was held firmly against the resected distal surface of the femur. The posterior condyles were resting on the posterior plane of the guide. The sizing stylus was then placed onto the anterior femur. The size was measured as a size 10. I then assessed for femoral rotation. Plan was for 3 degrees of external rotation. Three degrees external rotation was placed onto the jig. These holes were then marked. I then confirmed the rotation by 3 separate methods. This was done using epicondylar axis as well as Whitesides line and posterior referencing. It was deemed that the external rotation was proper. I then went forward with placing the femoral cutting block. This was placed over the previously placed pin holes. The Rajeev wing was then placed onto the anterior slots to ensure that we would not notch the anterior femur with the anterior femoral cut. I then proceeded with the anterior femoral cut. This was flush with the anterior cortex of the femur. The posterior cuts were then made followed by the anterior chamfer cut, then the posterior chamfer cut. The cutting block was then removed. Throughout the resection, the collateral ligaments were protected with retractors. I then placed a trial size 10 femur. It fit very nice medial-lateral and fit flush with the distal end of the femur. The drill holes were then made. I then proceeded with the tibial cut. I planned for cruciate retaining knee. The guide was placed in separate varus valgus and for slope. The height was set for approximate 2 mm resection from the lateral tibial plateau which was the lower side. I was happy with the alignment and the amount of resection. The cutting block was then pinned to the proximal tibia. The alignment gregory was removed. The proximal tibia was resected with a reciprocating saw. Again this was done with retractors protecting the collateral ligaments as well as the posterior cruciate ligament. I then proceeded to evaluate the flexion and extension gaps. A 10 mm block was then placed. The flexion-extension gaps were equal. I then proceeded with resection of posterior osteophytes. Very extensive posterior osteophytes. This was done using a curved osteotome. This resected the posterior osteophytes and posterior capsule stripping was also done off the posterior aspect of the femur at this time. The osteophytes were then removed. I then proceeded with resection of the patella. The thickness of patella was measured using a caliper. The thickness was approximately 25 mm. The thickness of the anticipated patellar dome was taken into account. Resection was then performed and confirmed to be equal in 4 quadrants using a caliper. Approximately 14 mm of bone remained after resection. A 35 x 9 mm standard patellar trial was then placed. The holes were then drilled. The trial was then placed. I then proceeded with sizing the tibial plate. A size G tibial plate fit very nicely. I then placed the trial femur the tibial tray and patellar button. A 10 mm trial tibial insert was then placed. The components fit very nicely. He had full extension and flexion. The extension and flexion gaps were equal and stable to both varus and valgus stress. The patella tracked appropriately. Tibial tray rotation was then marked with a Bovie. This was externally rotated properly. I then proceeded with tibial preparation. I first drilled the femoral holes, removed femoral component. The tibial tray was then set for proper external rotation as well as mediolateral placement onto the tibia. It was then pinned into place. I then proceeded with punching the keel. I then decided to proceed with cementing of all of our components. The knee was thoroughly irrigated with sterile saline solution via pulse lavage. The lateral geniculate artery was identified and cauterized. All blood was removed from the bone of the tibia femur and patella with pulse lavage. I then proceeded with cementing. Two packs of antibiotic bone cement prep were prepared on the back table by the surgical elastic knitter. I then proceeded with cementing the tibia first. The cement was impacted in the keel as well as deeply seated into the bone. A second coat of cement was then placed. The tibia was then impacted into place. Excess cement was removed with Pomeroy's and jokers. I then proceed with cementing of the femoral component. The femoral component was also cemented using standard technique. Excess cement was removed. A 10 mm trial insert was then placed into the knee. It was brought into full extension with a constant axial load placed until the cement had hardened. The patellar component was then cemented. This held firmly with a compressive device until the cement had dried. When the cement had dried, the knee was taken out of extension. All excess cement was removed from around the prosthesis. I then trialed the knee with a 10 mm insert. The flexion-extension gaps were appropriate. The knee was stable. It came in full extension. I decided to go forward with a 10 mm cross-linked cruciate-retaining tibial insert. The polyethylene was then placed onto the tibial tray and locked into place. The knee was then reduced. The knee was again further irrigated with sterile saline solution with antibiotic added. The tourniquet was then deflated. Total tourniquet time for the procedure was 53 minutes at 250 mmHg of mercury. Final components were Jazz Persona size 10 cruciate-retaining femoral component, a size G tibial tray, a 10 mm medial congruent cruciate-retaining polyethylene insert and a 35 x 9 mm patella. I then proceeded with closure. Again, the knee was thoroughly irrigated. The quadriceps tendon and the medial retinaculum were reapproximated with #2 Ethibond suture. The extensor mechanism was then closed with a running #2 Quill suture. Subcutaneous tissues were then closed with 2-0 Vicryl interrupted suture. The skin was closed with a running 3-0 Quill suture. Dermabond was applied to the incision. Sterile compressive dressings were then applied. All sponge and needle counts were deemed correct prior to closure. The patient tolerated the procedure without apparent complication. He was transferred to recovery room in stable condition. MMODL / IJN: [id number] /
[2018-10-28] MEDS: SENNOSIDES-DOCUSATE SODIUM 1 EACH TAB PO SCH (20:58)
[2018-10-28] MEDS: ASPIRIN 325 MG TAB PO SCH (20:58)
[2018-10-28] MEDS: ceFAZolin IN SWFI 2 GM/20 ML SYRINGE IVP SCH (22:31)
[2018-10-29] MEDS: ceFAZolin IN SWFI 2 GM/20 ML SYRINGE IVP SCH (04:14)
[2018-10-29] MEDS: LOSARTAN 50 MG TAB PO SCH (07:51)
[2018-10-29] MEDS: CHOLECALCIFEROL 1,000 UNIT TAB PO SCH (07:51)
[2018-10-29] MEDS: HYDROCHLOROTHIAZIDE 12.5 MG CAP PO SCH (07:51)
[2018-10-29] MEDS: MULTIVITAMINS, THERA 1 EACH TAB PO SCH (07:51)
[2018-10-29] MEDS: ASPIRIN 325 MG TAB PO SCH ×2 (07:51→20:15)
[2018-10-29] MEDS: LACTATED RINGERS 1,000 ML IV SCH ×2 (07:53→20:02)
[2018-10-29 08:21] LABS: Basophils % (A) 0 %; Eosinophils % (A) 0 %; HCT 38.8 % (39.0-53.0); HGB 12.3 gm/dL (13.0-17.5); Hypochromasia Slight; Lymphocytes # (A) 0.6 k/uL (1.0-4.8); Lymphocytes % (A) 6 %; MCH 27.6 pg (25.0-35.0); MCHC 31.8 g/dL (31.0-37.0); MCV 86.7 fL (80.0-100.0); Mean Platelet Volume 7.4; Monocytes # (A) 0.6 k/uL (0-1.0); Monocytes % (A) 7 %; Neutrophils # (A) 7.8 k/uL (1.3-7.7); Neutrophils % (A) 86 %; Platelet Count 175 k/uL (150-450); RBC 4.47 m/uL (4.30-5.90); RDW 13.6 % (11.5-15.5); WBC 9.1 k/uL (3.8-10.6)
[2018-10-29 08:48] LABS: Anion Gap 8 mmol/L; Blood Urea Nitrogen 16 mg/dL (9-20); Calcium 8.9 mg/dL (8.4-10.2); Carbon Dioxide 27 mmol/L (22-30); Chloride 100 mmol/L (98-107); Glucose 119 mg/dL (74-99); Potassium 4.1 mmol/L (3.5-5.1); Sodium 135 mmol/L (137-145)
--- NOTE | 2018-10-29 10:12 | P.PN ---
Subjective Progress Note Date: 10/29/18 Principal diagnosis: S/P right TKA Patient is seen at bedside this morning. He is postop day #1 from right total knee arthroplasty. He has pain at the surgical site as expected and some difficulty urinating. He denies any other new complaints. He denies numbness, tingling or calf pain. Review of systems is negative for fever, chills, chest pain, shortness of breath or other Objective - Vital Signs Vital signs: Vital Signs Temp 98 F 10/29/18 07:00 Pulse 85 10/29/18 08:00 Resp 18 10/29/18 08:00 BP 138/70 10/29/18 07:00 Pulse Ox 93 L 10/29/18 07:00 Intake & Output 10/28/18 10/29/18 10/29/18 18:59 06:59 18:59 Intake Total 1501 1450 296 Output Total 100 2600 Balance 1401 -1150 296 Weight 109.9 kg Intake: IV 1501 Intake, IV Titration 1100 Amount Lactated Ringers 1,000 ml 1100 @ 100 mls/hr IV .Q10H [facility] Rx#:[id number] Oral 350 296 Output: Urine 2600 Straight 900 Estimated Blood Loss 100 - Exam Inspection reveals a benign surgical wound. There is no active bleeding or drainage. Neurovascular status is intact throughout the lower extremity with motor and sensation fully intact. Calf is soft and nontender. 2+ dorsalis pedis pulse and less than 2 second cap refill is present. - Constitutional General appearance: Present: no acute distress - Labs CBC & Chem 7: 10/29/18 08:06 10/29/18 08:06 Labs: Abnormal Lab Results - Last 24 Hours (Table) 10/29/18 10/29/18 Range/Units 08:06 08:06 Hgb 12.3 L (13.0-17.5) gm/dL Hct 38.8 L (39.0-53.0) % Neutrophils # 7.8 H (1.3-7.7) k/uL Lymphocytes # 0.6 L (1.0-4.8) k/uL Sodium 135 L (137-145) mmol/L Glucose 119 H (74-99) mg/dL Assessment and Plan (1) Osteoarthritis of right knee Narrative/Plan: He will continue with routine postop orthopedic protocol including pain management, wound care, PT, DVT prophylaxis and medical management. Will defer to IM for recommendations regarding voiding issues. Continue bladder scans, I/O monitoring and catheterization as needed in interim. Expect that he will transfer to home tomorrow Current Visit: Yes Status: Acute Priority: Medium Code(s): M17.11 - UNILATERAL PRIMARY OSTEOARTHRITIS, RIGHT KNEE SNOMED Code(s): 923285634586568 (2) BPH (benign prostatic hyperplasia) Current Visit: Yes Status: Acute Priority: Medium Code(s): N40.0 - BENIGN PROSTATIC HYPERPLASIA WITHOUT LOWER URINRY TRACT SYMP SNOMED Code(s): 233154070 (3) Hypertension Current Visit: Yes Status: Acute Priority: Medium Code(s): I10 - ESSENTIAL (PRIMARY) HYPERTENSION SNOMED Code(s): 06033211 Time with Patient: Less than 30
[2018-10-29] MEDS ORDERED: TAMSULOSIN 0.4 MG CAP.ER.24H PO STA (10:57)
--- NOTE | 2018-10-29 11:17 | P.PN ---
Progress Note - Text Progress Note Date: 10/29/18 Postoperative day 1 status post total knee arthroplasty under spinal anesthesia, and intrathecal morphine given for postoperative analgesia, patient doing well, there is no anesthesia related complications, Patient had no headache, vital signs stable , Assessment and plan= postop day 1 , doing well there is no anesthesia related complication.
--- NOTE | 2018-10-29 11:21 | P.CONS ---
History of Present Illness - History of Present Illness This is a pleasant 78 years old male with past medical history of hypertension, benign prostatic hypertrophy, vertigo, osteoarthritis status post bilateral hip replacement. Patient here for elective right total knee arthroplasty. Surgery was done yesterday. Patient is tolerating pain well. No chest pain or dyspnea. he No change in mental status. No change in bowel habits. However he has difficulty urination with urinary retention, Flomax was added. Patient is to lerating diet well Patient didn't have bowel movement but he is passing gases. No fever. Review of Systems CONSTITUTIONAL: No fever, no malaise, no fatigue. HEENT: No recent visual problems or hearing problems. Denied any sore throat. CARDIOVASCULAR: No orthopnea, PND, no palpitations, no syncope. PULMONARY: No shortness of breath, no cough, no hemoptysis. GASTROINTESTINAL: No diarrhea, no nausea, no vomiting, no abdominal pain. Normoactive bowel sounds. NEUROLOGICAL: No headaches, no weakness, no numbness. HEMATOLOGICAL: Denies any bleeding or petechiae. GENITOURINARY: Denies any burning micturition, frequency, or urgency. MUSCULOSKELETAL/RHEUMATOLOGICAL: Denies any joint pain, swelling, or any muscle pain. ENDOCRINE: Denies any polyuria or polydipsia. Past Medical History Past Medical History: Hypertension, Osteoarthritis (OA), Prostate Disorder Additional Past Medical History / Comment(s): vertigo, History of Any Multi-Drug Resistant Organisms: None Reported Past Surgical History: Hernia Repair, Joint Replacement Additional Past Surgical History / Comment(s): Bilateral Hip Replacement, left Knee Replacement, amarilis cataracts Past Anesthesia/Blood Transfusion Reactions: No Reported Reaction Past Psychological History: No Psychological Hx Reported Smoking Status: Never smoker Past Alcohol Use History: None Reported Past Drug Use History: None Reported - Past Family History Mother Family Medical History: No Reported History Sister(s) Family Medical History: Diabetes Mellitus, Hypertension Medications and Allergies Home Medications Medication Instructions Recorded Confirmed Type RX: Losartan/Hydrochlorothiazide 1 tab PO DAILY 08/22/18 10/28/18 History [Hyzaar 100-12.5 Tablet] Cholecalciferol [Vitamin D3] 2,000 unit PO DAILY 10/12/18 10/28/18 History Multivitamins, Thera [Multivitamin 1 tab PO DAILY 10/12/18 10/28/18 History (formulary)] RX: Ibuprofen 600 mg PO QAM 10/12/18 10/28/18 History RX: Saw [place] 500 mg PO DAILY 10/12/18 10/28/18 History Allergies Allergy/AdvReac Type Severity Reaction Status Date / Time No Known Allergies Allergy Verified 10/28/18 17:57 Physical Exam Vitals: Vital Signs Temp Pulse Resp BP BP Pulse Ox 10/29/18 09:00 16 10/29/18 08:00 85 18 10/29/18 07:00 98 F 85 18 138/70 93 L 10/29/18 01:43 18 10/28/18 23:53 160/90 10/28/18 23:00 97.3 F L 99 20 169/101 99 10/28/18 21:32 97.0 F L 66 18 154/96 97 10/28/18 21:22 98 10/28/18 21:06 18 10/28/18 19:35 47 L 146/80 10/28/18 19:20 83 162/86 10/28/18 19:05 63 143/81 10/28/18 18:18 82 137/86 10/28/18 18:01 66 159/86 10/28/18 17:47 95.8 F L 61 145/81 94 L 10/28/18 17:28 67 16 151/75 94 L 10/28/18 17:13 63 16 143/76 94 L 10/28/18 16:58 67 16 14/74 98 10/28/18 16:43 61 16 142/77 98 10/28/18 16:27 63 16 173/91 97 10/28/18 16:12 96.8 F L 79 16 173/91 98 10/28/18 12:57 97.9 F 86 16 129/95 94 L Intake and Output 10/28/18 10/29/18 10/29/18 22:59 06:59 14:59 Intake Total 600 1050 296 Output Total 300 2400 Balance 300 -1350 296 Intake: IV 200 Intake, IV Titration 400 700 Amount Lactated Ringers 1,000 ml 400 700 @ 100 mls/hr IV .Q10H [facility] Rx#:[id number] Oral 350 296 Output: Urine 200 2400 Straight 900 Estimated Blood Loss 100 GENERAL: The patient is alert and oriented x3, not in any acute distress. Well developed, well nourished. HEENT: Pupils are round and equally reacting to light. EOMI. No scleral icterus. No conjunctival pallor. Normocephalic, atraumatic. No pharyngeal erythema. No thyromegaly. CARDIOVASCULAR: S1 and S2 present. No murmurs, rubs, or gallops. PULMONARY: Chest is clear to auscultation, no wheezing or crackles. ABDOMEN: Soft, nontender, nondistended, normoactive bowel sounds. No palpable organomegaly. MUSCULOSKELETAL: No joint swelling or deformity. -EXTREMITIES: No cyanosis, clubbing, or pedal edema. Right knee wound is clean and healing with minimal erythema and swelling. Expected from surgery NEUROLOGICAL: Gross neurological examination did not reveal any focal deficits. SKIN: No rashes. Results CBC & Chem 7: 10/29/18 08:06 10/29/18 08:06 Labs: Abnormal Lab Results - Last 24 Hours (Table) 10/29/18 10/29/18 Range/Units 08:06 08:06 Hgb 12.3 L (13.0-17.5) gm/dL Hct 38.8 L (39.0-53.0) % Neutrophils # 7.8 H (1.3-7.7) k/uL Lymphocytes # 0.6 L (1.0-4.8) k/uL Sodium 135 L (137-145) mmol/L Glucose 119 H (74-99) mg/dL Assessment and Plan Assessment: Severe osteoarthritis, status post right total knee arthroplasty Urinary retention, acute Benign prostatic hypertrophy History of vertigo Essential hypertension Plan: This is a pleasant 78 years old male who presents for right total knee arthropla sty. Continue with pain management as per primary team. Recommend DVT prophylaxis which is also managed by the primary team. We'll keep monitoring for the patient. Start Flomax for urinary retention Labs and medication were reviewed.. Continue same treatment. Continue with symptomatic treatment. Resume home medication. Monitor lytes and vitals. DVT and GI prophylaxis. Further recommendations of the clinical course of the patient
[2018-10-29] MEDS: HYDROcodone/APAP 5-325MG 1 EACH TAB PO PRN ×2 (12:07→17:36)
[2018-10-29] MEDS: SENNOSIDES-DOCUSATE SODIUM 1 EACH TAB PO SCH (20:15)
[2018-10-30] MEDS ORDERED: LIDOCAINE URO-JET JELLY 2% 5 ML KIT URETHRAL ONE (00:55)
[2018-10-30] MEDS: HYDROcodone/APAP 5-325MG 1 EACH TAB PO PRN (00:58)
[2018-10-30] MEDS: LACTATED RINGERS 1,000 ML IV SCH (05:15)
[2018-10-30] MEDS: LOSARTAN 50 MG TAB PO SCH (07:45)
[2018-10-30] MEDS: CHOLECALCIFEROL 1,000 UNIT TAB PO SCH (07:45)
[2018-10-30] MEDS: MULTIVITAMINS, THERA 1 EACH TAB PO SCH (07:45)
[2018-10-30] MEDS: HYDROCHLOROTHIAZIDE 12.5 MG CAP PO SCH (07:45)
[2018-10-30] MEDS: ASPIRIN 325 MG TAB PO SCH (07:45)
[2018-10-30] MEDS ORDERED: TAMSULOSIN 0.4 MG CAP.ER.24H PO SCH (08:30)
[2018-10-30 08:58] VITALS: BP 153/79; PULSE 98; RESP 14; TEMP 98.5
--- NOTE | 2018-10-30 10:07 | P.DS ---
Providers Date of admission: 10/28/18 11:50 Expected date of discharge: 10/30/18 Attending physician: Phu Cruz Consults: 10/28/18 12:13 Consult Physician Routine Consulting Provider: Wyatt Louise Consult Reason/Comments: post op medical management Do you want consulting provider notified?: Yes 10/28/18 18:05 Consult Physician Routine Consulting Provider: Sharan Strickland Consult Reason/Comments: medical management Do you want consulting provider notified?: Yes 10/29/18 19:05 Consult Physician Routine Consulting Provider: Robby Pineda Consult Reason/Comments: Urinary retention Do you want consulting provider notified?: Yes, Notify in am Primary care physician: Wyatt Louise - Discharge Diagnosis(es) (1) Osteoarthritis of right knee Patient was admitted to the OR on 10/28/2018 to undergo a right total knee arthroplasty. He had failed conservative measures as an outpatient and desired to proceed with elective surgery after given informed consent. He underwent the above procedure which he tolerated well without complication. Postoperative hospital course has remained without complication. On day of discharge he is afebrile, vital signs stable, labs within acceptable ranges, tolerating by mouth meds and diet, voiding without difficulty, positive flatus, denies abdominal pain or calf pain, pain is controlled on oral pain medication and has no new complaints. Wound is benign, neurovascular status is intact, calf is soft and nontender, abdomen soft and nontender. Review of systems is negative for numbness, tingling, fever, chills, chest pain, shortness breath, nausea, vomiting, dizziness, headaches, slurred speech or other Current Visit: Yes Status: Acute Priority: Medium (2) BPH (benign prostatic hyperplasia) Current Visit: Yes Status: Acute Priority: Medium (3) Hypertension Current Visit: Yes Status: Acute Priority: Medium Patient Condition at Discharge: Good Plan - Discharge Summary Discharge Rx Participant: Yes New Discharge Prescriptions: No Action Losartan/Hydrochlorothiazide [Hyzaar 100-12.5 Tablet] 1 tab PO DAILY Ibuprofen 600 mg PO QAM Saw [place] 500 mg PO DAILY Multivitamins, Thera [Multivitamin (formulary)] 1 tab PO DAILY Cholecalciferol [Vitamin D3] 2,000 unit PO DAILY Discharge Medication List Losartan/Hydrochlorothiazide [Hyzaar 100-12.5 Tablet] 1 tab PO DAILY 08/22/18 [History] Cholecalciferol [Vitamin D3] 2,000 unit PO DAILY 10/12/18 [History] Ibuprofen 600 mg PO QAM 10/12/18 [History] Multivitamins, Thera [Multivitamin (formulary)] 1 tab PO DAILY 10/12/18 [History] Saw [place] 500 mg PO DAILY 10/12/18 [History] Follow up Appointment(s)/Referral(s): Carlos A [facility], [NON-STAFF] - 1 Week
--- NOTE | 2018-10-30 17:56 | P.GSCN ---
History of Present Illness Consult date: 10/30/18 Reason for Consult: Urinary retention Requesting physician: Phu Cruz History of present illness: The patient is a 78-year-old -[place] male known to Dr. Lee. He has a history of BPH, for which he took tamsulosin for 1 month last summer. His primary symptom is nocturia, and tamsulosin decreased the nocturia from 3-5 times per night down to 2 times per night. However, he has quit taking the tamsulosin due to cost issues. He underwent a right total knee arthroplasty on 10/28/2018 and developed urinary retention. The Friend catheter remains in place. Review of Systems - Constitutional Denies chills, Denies fever - Genitourinary Reports nocturia Past Medical History Past Medical History: Hypertension, Osteoarthritis (OA), Prostate Disorder Additional Past Medical History / Comment(s): vertigo, History of Any Multi-Drug Resistant Organisms: None Reported Past Surgical History: Hernia Repair, Joint Replacement Additional Past Surgical History / Comment(s): Bilateral Hip Replacement, left Knee Replacement, amarilis cataracts Past Anesthesia/Blood Transfusion Reactions: No Reported Reaction Past Psychological History: No Psychological Hx Reported Smoking Status: Never smoker Past Alcohol Use History: None Reported Past Drug Use History: None Reported - Past Family History Mother Family Medical History: No Reported History Sister(s) Family Medical History: Diabetes Mellitus, Hypertension Medications and Allergies Home Medications Medication Instructions Recorded Confirmed Type Losartan/Hydrochlorothiazide 1 tab PO DAILY 08/22/18 10/28/18 History [Hyzaar 100-12.5 Tablet] Cholecalciferol [Vitamin D3] 2,000 unit PO DAILY 10/12/18 10/28/18 History Ibuprofen 600 mg PO QAM 10/12/18 10/28/18 History Multivitamins, Thera [Multivitamin 1 tab PO DAILY 10/12/18 10/28/18 History (formulary)] Saw [place] 500 mg PO DAILY 10/12/18 10/28/18 History Docusate [Colace] 100 mg PO BID #60 capsule 10/30/18 Rx HYDROcodone/APAP 7.5-325MG [[place] 1 - 2 tab PO Q6HR PRN #56 tab 10/30/18 Rx 7.5-325] Tamsulosin [Flomax] 0.4 mg PO PC-BRKFST #30 cap.er.24h 10/30/18 Rx Allergies Allergy/AdvReac Type Severity Reaction Status Date / Time No Known Allergies Allergy Verified 10/28/18 17:57 Surgical - Exam Vital Signs Temp Pulse Resp BP Pulse Ox 97.9 F 86 16 129/95 94 L 10/28/18 12:57 10/28/18 12:57 10/28/18 12:57 10/28/18 12:57 10/28/18 12:57 - General well developed, well nourished, no distress - Respiratory normal respiratory effort - Abdomen Abdomen: soft, non tender, no guarding, no rigid, no rebound - Genitourinary normal penis with no external lesions, testicles non-tender - Psychiatric oriented to time, oriented to person, oriented to place, speech is normal, memory intact Results - Labs 10/29/18 08:06 10/29/18 08:06 Assessment and Plan (1) Urinary retention Current Visit: Yes Status: Acute Code(s): R33.9 - RETENTION OF URINE, UNSPECIFIED SNOMED Code(s): 107075496 Plan: I have suggested to Mr. Matos that he be discharged home with the Friend catheter in place. Tamsulosin has been prescribed. He was instructed to remove his catheter early in the morning on November 02, and follow-up with Dr. Lee that afternoon to assess bladder emptying. Please notify me if I can be of any further assistance. Time with Patient: Less than 30
--- NOTE | 2018-10-30 18:14 | P.PN ---
Subjective This is a pleasant 78 years old male with past medical history of hypertension, benign prostatic hypertrophy, vertigo, osteoarthritis status post bilateral hip replacement. Patient here for elective right total knee arthroplasty. Surgery was done yesterday. Patient is tolerating pain well. No chest pain or dyspnea. he No change in mental status. No change in bowel habits. However he has difficulty urination with urinary retention, Flomax was added. Patient is tolerating diet well Patient didn't have bowel movement but he is passing gases. No fever. 10/30/2018 Patient was lying in bed comfortable not in distress with no chest pain or dyspnea. No change in bowel habits. He is tolerating diet well. And his pain and his right knee surgery is controlled. Patient developed urinary retention overnight and Friend catheter was placed. Flomax was prescribed for him. Patient is to be evaluated by urologist. I instructed the patient to follow-up with his urologist in 1 week. The office was closed today so staff co uld not make appointment for him area at however patient stated that he will call and make appointments by himself. As per patient was his urologist that he follows up with him. He even have his contact information and phone number sit in his mobile. Objective - Vital Signs Vital signs: Vital Signs Temp 98.5 F 10/30/18 08:39 Pulse 98 10/30/18 08:39 Resp 14 10/30/18 08:39 BP 153/79 10/30/18 08:39 Pulse Ox 93 L 10/30/18 08:39 Intake & Output 10/29/18 10/30/18 10/30/18 18:59 06:59 18:59 Intake Total 592 1680 600 Output Total 1150 2150 1600 Balance -558 470 -1000 Intake: Intake, IV Titration 1200 600 Amount Lactated Ringers 1,000 ml 600 @ 0 mls/hr IV .[facility] Rx#:[id number] Lactated Ringers 1,000 ml 1200 @ 100 mls/hr IV [facility] Rx#:[id number] Oral 592 480 Output: Urine 1150 2150 1600 Other: Voiding Method Indwelling Catheter # Voids 3 - Exam GENERAL: The patient is alert and oriented x3, not in any acute distress. Well developed, well nourished. HEENT: Pupils are round and equally reacting to light. EOMI. No scleral icterus. No conjunctival pallor. Normocephalic, atraumatic. No pharyngeal erythema. No thyromegaly. CARDIOVASCULAR: S1 and S2 present. No murmurs, rubs, or gallops. PULMONARY: Chest is clear to auscultation, no wheezing or crackles. ABDOMEN: Soft, nontender, nondistended, normoactive bowel sounds. No palpable organomegaly. MUSCULOSKELETAL: No joint swelling or deformity. EXTREMITIES: No cyanosis, clubbing, or pedal edema. NEUROLOGICAL: Gross neurological examination did not reveal any focal deficits. SKIN: No rashes. - Labs CBC & Chem 7: 10/29/18 08:06 10/29/18 08:06 Assessment and Plan Assessment: Severe osteoarthritis, status post right total knee arthroplasty Urinary retention, acute Benign prostatic hypertrophy History of vertigo Essential hypertension Plan: This is a pleasant 78 years old male who presents for right total knee arthroplasty. Continue with pain management as per primary team. Recommend DVT prophylaxis which is also managed by the primary team. We'll keep monitoring for the patient. Start Flomax for urinary retention Labs and medication were reviewed.. Continue same treatment. Continue with symptomatic treatment. Resume home medication. Monitor lytes and vitals. DVT and GI prophylaxis. Further recommendations of the clinical course of the patient Patient was instructed to follow up with his urologist in one week. As well as with his PCP in one week, Dr. Han. Patient agreed and states he will call and make appointments. Offices were closed today and staff could not make appointments for him today
== END 2018-10-30 19:27 | disposition home health service (06) | DRG 470 ==
LOC: 2ORMAIN 11:50 → EDSTATUS 14:55 → 4SSUR 16:05
PROVIDERS: ADMIT Orthopaedic Surgery Sports Medicine; ATTEND Orthopaedic Surgery Sports Medicine
PROC: 0SRC0J9 Replacement of Right Knee Joint with Synthetic Substitute, Cemented, Open Approach (ICD-10-PCS; principal; 2018-10-28 13:35)
DX: M17.11 Unilateral primary osteoarthritis, right knee (principal); N40.1 Benign prostatic hyperplasia with lower urinary tract symptoms; R33.8 Other retention of urine; M21.061 Valgus deformity, not elsewhere classified, right knee; I10 Essential (primary) hypertension; R35.1 Nocturia; R42 Dizziness and giddiness; T44.6X6A Underdosing of alpha-adrenoreceptor antagonists, initial encounter; Z91.120 Patient's intentional underdosing of medication regimen due to financial hardship; Z79.1 Long term (current) use of non-steroidal anti-inflammatories (NSAID); Z79.899 Other long term (current) drug therapy; Z96.643 Presence of artificial hip joint, bilateral; Z96.652 Presence of left artificial knee joint; Z83.3 Family history of diabetes mellitus; Z82.49 Family history of ischemic heart disease and other diseases of the circulatory system
CPT/HCPCS: 80048; 85025; 88300; 94760

== ENCOUNTER → 2019-09-20 | Outpatient (CLI) | payer MEDICARE, OTHER ==
[2019-09-20 14:41] LABS: Basophils % (A) 1 %; Eosinophils # (A) 0.1 k/uL (0-0.7); Eosinophils % (A) 2 %; HCT 40.4 % (39.0-53.0); HGB 12.9 gm/dL (13.0-17.5); Lymphocytes % (A) 20 %; MCH 27.3 pg (25.0-35.0); MCHC 31.9 g/dL (31.0-37.0); MCV 85.6 fL (80.0-100.0); Mean Platelet Volume 8.1; Monocytes # (A) 0.3 k/uL (0-1.0); Monocytes % (A) 6 %; Neutrophils # (A) 3.5 k/uL (1.3-7.7); Neutrophils % (A) 68 %; Platelet Count 179 k/uL (150-450); RBC 4.72 m/uL (4.30-5.90); RDW 12.9 % (11.5-15.5); WBC 5.1 k/uL (3.8-10.6)
[2019-09-20 16:25] LABS: Erythrocyte Sedimentation Rate 12 mm/hr (0-15)
== END | disposition home or self-care (01) ==
LOC: LABWHC1 12:55
PROVIDERS: ATTEND Orthopaedic Surgery
DX: M25.551 Pain in right hip (principal)
CPT/HCPCS: 36415; 85025; 85652; 86140

== ENCOUNTER → 2020-02-15 | Outpatient (CLI) | payer BC, MEDICARE ==
[2020-02-15 14:52] LABS: HCT 48.3 % (39.0-53.0); HGB 15.4 gm/dL (13.0-17.5); MCH 27.8 pg (25.0-35.0); MCHC 31.9 g/dL (31.0-37.0); MCV 87.4 fL (80.0-100.0); Mean Platelet Volume 8.1; Platelet Count 182 k/uL (150-450); RBC 5.52 m/uL (4.30-5.90); RDW 13.3 % (11.5-15.5); WBC 6.3 k/uL (3.8-10.6)
[2020-02-15 14:56] LABS: Appearance,Urine Clear (Clear); Bilirubin,Urine Negative (Negative); Blood,Urine Negative (Negative); Color,Urine Yellow; Glucose,Urine (UA) Negative (Negative); Ketones,Urine Negative (Negative); Leukocyte Esterase,Urine Negative (Negative); Nitrite,Urine Negative (Negative); PH, Urine 5.5 (5.0-8.0); Protein,Urine Negative (Negative); Specific Gravity,Urine 1.019 (1.001-1.035); Urobilinogen,Urine <2.0 mg/dL (<2.0)
[2020-02-15 14:59] LABS: Partial Thromboplastin Time 22.7 sec (22.0-30.0)
[2020-02-15 15:04] LABS: ALT 30 U/L (4-49); AST 31 U/L (17-59); African American GFR (CKD) >90 (>60 ml/min/1.73 sqM); Albumin 4.3 g/dL (3.5-5.0); Alkaline Phosphatase 57 U/L (38-126); Anion Gap 8 mmol/L; Blood Urea Nitrogen 18 mg/dL (9-20); Calcium 9.4 mg/dL (8.4-10.2); Carbon Dioxide 29 mmol/L (22-30); Chloride 99 mmol/L (98-107); Glucose 101 mg/dL (74-99); Non-African American GFR(CKD) >90 (>60 ml/min/1.73 sqM); Potassium 4.3 mmol/L (3.5-5.1); Sodium 136 mmol/L (137-145); Total Bilirubin 0.6 mg/dL (0.2-1.3)
== END | disposition home or self-care (01) ==
LOC: LABPAT 12:58
PROVIDERS: ATTEND Orthopaedic Surgery
DX: Z01.818 Encounter for other preprocedural examination (principal); M16.11 Unilateral primary osteoarthritis, right hip; Z79.01 Long term (current) use of anticoagulants
CPT/HCPCS: 36415; 80053; 81003; 85027; 85610; 85730; 87070

== ENCOUNTER → 2020-02-21 | Outpatient (CLI) | payer MEDICARE ==
[2020-02-15 10:32] VITALS: BMI 29.8
[~2020-02-21] MED LIST changes: +ASPIRIN 325 MG TAB PO SCH; +DEXAMETHASONE SOD PHOSPHATE 10 MG/ML 1 ML VIAL IV ONE; +DIAZEPAM 5 MG TAB PO PRN; +GABAPENTIN 300 MG CAP PO ONE; +HYDROcodone/APAP 5-325MG 1 EACH TAB PO PRN; +HYDROmorphone 0.5 MG/0.5 ML SYRINGE IVP PRN; -LIDOCAINE 1% 20 ML VIAL (10MG/ML) FOR IV START INTRADERMA PRN; +MAGNESIUM HYDROXIDE 2,400 MG/10 ML CUP PO PRN; +MELOXICAM 7.5 MG TAB PO SCH; -MIDAZOLAM (PF) 2 MG/2 ML VIAL IV PRN; +NALOXONE 0.4 MG/ML 1 ML VIAL IV PRN; +ONDANSETRON 4 MG/2 ML VIAL IVP PRN; -SCOPOLAMINE 1.5MG/72HR PATCH TRANSDERM ONE; +SENNOSIDES-DOCUSATE SODIUM 1 EACH TAB PO SCH; +SODIUM CHLORIDE 0.9% 1,000 ML IV SCH; -ceFAZolin IN SWFI 2 GM/20 ML SYRINGE IVP ONE; +hydrOXYzine PAMOATE 25 MG CAP PO PRN
== END | disposition home or self-care (01) ==
LOC: 2ORMAIN 08:47 → OR 08:47 → UNDOADMIN 08:47 → EDSTATUS 09:05
PROVIDERS: ATTEND Orthopaedic Surgery
DX: Z01.818 Encounter for other preprocedural examination (principal); M16.11 Unilateral primary osteoarthritis, right hip; Z79.01 Long term (current) use of anticoagulants
CPT/HCPCS: 86850; 86900; 86901

== ENCOUNTER → 2020-04-21 | Outpatient (CLI) | payer MEDICARE ==
[2020-04-21 14:11] LABS: Appearance,Urine Clear (Clear); Bilirubin,Urine Negative (Negative); Blood,Urine Negative (Negative); Color,Urine Light Yellow; Glucose,Urine (UA) Negative (Negative); Ketones,Urine Negative (Negative); Leukocyte Esterase,Urine Negative (Negative); Nitrite,Urine Negative (Negative); Protein,Urine Negative (Negative); Specific Gravity,Urine 1.008 (1.001-1.035); Urobilinogen,Urine <2.0 mg/dL (<2.0)
[2020-04-21 14:40] LABS: HCT 42.6 % (39.0-53.0); HGB 13.5 gm/dL (13.0-17.5); MCHC 31.8 g/dL (31.0-37.0); Mean Platelet Volume 8.2; Platelet Count 190 k/uL (150-450); RDW 13.1 % (11.5-15.5); WBC 7.2 k/uL (3.8-10.6)
[2020-04-21 14:49] LABS: ALT 21 U/L (4-49); AST 27 U/L (17-59); African American GFR (CKD) >90 (>60 ml/min/1.73 sqM); Alkaline Phosphatase 51 U/L (38-126); Anion Gap 8 mmol/L; Blood Urea Nitrogen 16 mg/dL (9-20); Calcium 9.2 mg/dL (8.4-10.2); Carbon Dioxide 26 mmol/L (22-30); Chloride 103 mmol/L (98-107); Glucose 106 mg/dL (74-99); Non-African American GFR(CKD) 86 (>60 ml/min/1.73 sqM); Potassium 4.2 mmol/L (3.5-5.1); Sodium 137 mmol/L (137-145); Total Bilirubin 0.6 mg/dL (0.2-1.3); Total Protein 6.3 g/dL (6.3-8.2)
[2020-04-21 14:56] LABS: Partial Thromboplastin Time 23.2 sec (22.0-30.0); Prothrombin Time 10.4 sec (9.0-12.0)
== END | disposition home or self-care (01) ==
LOC: LABPAT 11:58
PROVIDERS: ATTEND Orthopaedic Surgery
DX: Z01.818 Encounter for other preprocedural examination (principal); Z01.812 Encounter for preprocedural laboratory examination
CPT/HCPCS: 36415; 80053; 81003; 85027; 85610; 85730; 86850; 86900; 86901; 87070

== ENCOUNTER 2020-05-02 10:36 | Observation (INO) | payer MEDICARE ==
[2020-04-26 16:18] VITALS: BMI 28.5
[~2020-05-02 10:36] MED LIST changes: -ASPIRIN 325 MG TAB PO SCH; -DIAZEPAM 5 MG TAB PO PRN; -HYDROcodone/APAP 5-325MG 1 EACH TAB PO PRN; -LACTATED RINGERS 1,000 ML IV SCH; -MAGNESIUM HYDROXIDE 2,400 MG/10 ML CUP PO PRN; -MELOXICAM 7.5 MG TAB PO SCH; +MIDAZOLAM 2 MG/2 ML VIAL IV PRN; -NALOXONE 0.4 MG/ML 1 ML VIAL IV PRN; -ONDANSETRON 4 MG/2 ML VIAL IVP PRN; -SENNOSIDES-DOCUSATE SODIUM 1 EACH TAB PO SCH; -SODIUM CHLORIDE 0.9% 1,000 ML IV SCH; -hydrOXYzine PAMOATE 25 MG CAP PO PRN
[2020-05-02] MEDS ORDERED: MAGNESIUM HYDROXIDE 2,400 MG/10 ML CUP PO PRN (11:05)
[2020-05-02] MEDS ORDERED: ONDANSETRON 4 MG/2 ML VIAL IVP PRN (11:05)
[2020-05-02] MEDS ORDERED: NALOXONE 0.4 MG/ML 1 ML VIAL IV PRN (11:05)
[2020-05-02] MEDS ORDERED: HYDROmorphone 0.5 MG/0.5 ML SYRINGE IVP PRN ×3 (11:05)
[2020-05-02] MEDS ORDERED: HYDROcodone/APAP 5-325MG 1 EACH TAB PO PRN (11:05)
[2020-05-02] MEDS: LACTATED RINGERS 1,000 ML IV SCH (11:43)
[2020-05-02] MEDS ORDERED: MIDAZOLAM 2 MG/2 ML VIAL ONE (12:03)
[2020-05-02] MEDS ORDERED: fentaNYL (PF) 50 MCG/ML 2 ML AMP ONE (12:03)
[2020-05-02] MEDS ORDERED: SODIUM CHLORIDE 0.9% IRRIG 1,000 ML BTL IRRIGATION ONE (12:03)
[2020-05-02] MEDS ORDERED: TRANEXAMIC ACID 1,000 MG/10 ML VIAL ONE (12:03)
[2020-05-02] MEDS ORDERED: HEPARIN SODIUM,PORCINE 10,000 UNIT/ML 1 ML VIAL ONE (12:03)
[2020-05-02] MEDS ORDERED: LIDOCAINE 1% INJ 10MG/ML (20 ML MDV) ONE (12:03)
[2020-05-02] MEDS ORDERED: SODIUM CHLORIDE 0.9% 100 ML BAG ONE (12:03)
[2020-05-02] MEDS ORDERED: ceFAZolin 3,000 MG in SODIUM CHLORIDE 0.9% IRRIGATIO 3,000 ML IRRIGATION ONE (12:08)
[2020-05-02] MEDS ORDERED: LACTATED RINGERS 1,000 ML IV ONE (13:33)
--- NOTE | 2020-05-02 14:42 | P.OP ---
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 The femoral stem was retained. Implants: [employer] R3, multi hole acetabular shell, 56 mm [employer] reflection 6.5 mm cancellus screw, 20 mm 4, 25 mm x2 [employer] Oxinium dual mobility liner, 44 mm, 56 mm [employer] 28 mm, 44 mm dual mobility insert Biomet 28 mm type I taper +12 mm neck 15 mL of crushed cancellus bone from the musculoskeletal transplant foundation All components were press-fit. The articulation is Oxinium on polyethylene. Anesthesia: spinal Surgeon: Jesus Calderón Die Engraver #1: Kimberly Guzman Estimated Blood Loss (ml): 900 (550 mL returned with Cell Saver) Pathology: other (Cultures 2) Condition: stable Disposition: PACU Indications for Procedure: After failure of conservative treatment we discussed the surgical and nonsurgical treatment options at length. Patient wishes to proceed with a revision total hip arthroplasty with a polyethylene exchange. Complications specific to this procedure were discussed at length, including but not limited to infection, leg length discrepancy, dislocation, and nerve injury. Covid-19 was also discussed at length with the patient, and they are aware of the current policies and procedures. The patient was given the option of delaying surgery, but they elect to proceed knowing these risks. Patient is aware of all these complications and informed consent was obtained Operative Findings: The operative findings are consistent with polyethylene failure and gross acetabular loosening of the right total hip arthroplasty. The femoral component was well fixed. Description of Procedure: Patient was seen and evaluated in the preoperative area, consent was reviewed, and the surgical site was marked with a skin marker. Patient was then brought to the operating room and given prophylactic antibiotics intravenously. 1 g of Tranexamic acid was also given. A spinal anesthetic was administered by the anesthesia department. The patient was then placed on the operative table and placed in the lateral decubitus position with the bony prominences well-padded. The hip area was then prepped and draped in usual sterile fashion. A universal timeout was then performed, which confirmed the patient's name, surgical site, ALLERGIES, and procedure being performed. Next the incision site was located in the lateral aspect of the hip, centered at the tip of the greater trochanter.. The skin and subcutaneous tissues were sharply incised. A portion of his prior incision was utilized, with the scar being excised. Incision was carefully dissected down to the fascia. This fascia was then incised in line with the incision. Next, a Charnley retractor was then placed. The abductors were found to be completely torn chronically with no way to repair them. The anterior hip capsule was then exposed. The capsule was then opened. There was a moderate amount of clear fluid which was cultured 2. The proximal femur was then visualized. The hip was then gently dislocated. The femoral head was then removed from the trunnion of the femoral component. The femoral stem was then inspected, and found to be well fixed. Attention was then turned to the acetabulum. The acetabulum was exposed, and the scar tissue was excised sharply with a knife. After the acetabulum was exposed, the acetabular component was found to be grossly loose. The polyethylene was removed with a osteotome and a mallet. The 2 acetabular screws were then removed. Acetabular component was an easily removed. The acetabulum was then inspected and found to have significant bone loss superiorly and posteriorly. Sequential reaming was then performed to 56 mm. The 56 mm trial had some fixation, but was limited secondary to the bone loss. Graft from the reaming and also 15 mL of crushed cancellus bone graft were then deposited into the acetabular bed. Final acetabular component was th en impacted in appropriate anteversion and inclination. 6 screws were then placed in the acetabulum which afforded excellent fixation of the acetabular component. The dual mobility liner was then impacted with component locking confirmed. Hip was then trialed with sequential trials to a +12 mm neck. The leg lengths were checked and found to be equal. Hip was then taken through full range of motion, was stable throughout. Next, the hip was gently dislocated, and the trials were removed. The trunnion was then cleaned and dried and the femoral head and dual mobility insert was impacted on the trunnion. Hip was then reduced and any excess cement was removed. The hip was not moved until the cement had hardened. After the cemented hardened, the hip was then taken through range of motion and found to be stable throughout. Leg lengths were also checked, and found to be equal. The hip was then copiously irrigated with antibiotic solution with pulsatile lavage. The hip was then irrigated with Irrisept solution. The soft tissues were then injected with ropivacaine solution. A second dose of 1 g of Tranexamic acid was given. The abductors were not present secondary to the chronic tear and retraction. The fascia was closed with #2 strata fix suture. The subcutaneous tissue was closed with 3-0 Vicryl. The subcuticular tissue was closed with 3-0 strata fix suture. The skin was then closed with exofin glue. A silver dressing was then placed over the incision. The patient was then transferred to the recovery room in stable condition. The Asst. AMINAH Silva was required due to the complexity of surgery, and the need for skilled ophthalmology surgical technician for positioning, draping, exposure, retraction, and closure of the wound.and closure of the wound.
--- NOTE | 2020-05-02 15:33 | XR ---
Limited right hip HISTORY: Status post right hip arthroplasty Patient is status post right hip arthroplasty, cerclage wire is present along the proximal right femu r. There are small metallic densities along the proximal right femur which are likely postoperative. There is anatomic alignment. Distortion of the [place] acetabulum is likely chronic. IMPRESSION: Orthopedic follow-up.
[2020-05-02] MEDS: SODIUM CHLORIDE 0.9% 1,000 ML IV SCH (16:31)
[2020-05-02] MEDS: ASPIRIN 325 MG TAB PO SCH (20:34)
[2020-05-02] MEDS: SENNOSIDES-DOCUSATE SODIUM 1 EACH TAB PO SCH (20:34)
[2020-05-02] MEDS ORDERED: LACTATED RINGERS 500 ML IV SCH (21:00)
--- NOTE | 2020-05-02 21:07 | P.CONS ---
History of Present Illness - Reason for Consult Consult date: 05/02/20 Medical management Requesting physician: Jesus Calderón - Chief Complaint Right hip surgery - History of Present Illness Consultation: This is a 80-year-old patient of Dr. arreguin from [place]. Chronic stable medical conditions include hypertension, osteoarthritis, possible BPH. Patient had a prior right hip replacement. Had malfunctioning of the same. Patient s tarted having progressive increased pain in the right hip and trouble walking. Was with activity better with rest. Patient underwent revision of the same today. Postprocedure laying in bed. A bit tired. No nausea vomiting. No chest pain. Review of systems: GEN.: Tired EYES: None HEENT: None NECK: None RESPIRATORY: None CARDIOVASCULAR: None GASTROINTESTINAL: None GENITOURINARY: None MUSCULOSKELETAL: Joint pains LYMPHATICS: None HEMATOLOGICAL: None PSYCHIATRY: None NEUROLOGICAL: None Past medical history to include: Hypertension, osteoarthritis, possible BPH Social history: . Does not smoke. Alcohol occasionally. Physical examination: VITAL SIGNS: 97.1, 50, 16, 139/83, 94% on room air GENERAL: BMI 28.6, laying in bed, comfortable. EYES: Pupils equal. Conjunctiva normal. HEENT: External appearance of nose and ears normal, oral cavity grossly normal. NECK: JVD not raised; masses not palpable. HEART: First and second heart sounds are normal; no edema. LUNGS: Respiratory rate normal; clear to auscultation. ABDOMEN: Soft, nontender, liver spleen not palpable, no masses palpable. PSYCH: Alert and oriented x3; mood and affect normal. MUSCULAR skeletal: Evidence of OA, dressing over the right hip, posteriorly NEUROLOGICAL: Cranial nerves grossly intact; no facial asymmetry, power and sensation grossly intact. LYMPHATICS: No lymph nodes palpable in the axilla and neck INVESTIGATIONS, reviewed in the clinical context: White count 7.2 hemoglobin 13.5 potassium 4.2 creatinine 0.80 Assessment: -Revision right total hip arthroplasty for malfunction -Essential hypertension -Primary osteoarthritis -Possible BPH Plan: Home medications resumed. Pain control in place. Patient on aspirin for DVT prophylaxis per Dr. Calderón. Care was discussed with the patient. Questions were answered. Past Medical History Past Medical History: Hypertension, Osteoarthritis (OA) Additional Past Medical History / Comment(s): problem w/urinary retention last year after knee replacement & went home w/boykin catheter History of Any Multi-Drug Resistant Organisms: None Reported Past Surgical History: Hernia Repair, Joint Replacement, Orthopedic Surgery Additional Past Surgical History / Comment(s): Bilateral Hip Replacement, amarilis. Knee Replacement, cataracts removed Past Anesthesia/Blood Transfusion Reactions: No Reported Reaction Additional Past Anesthesia/Blood Transfusion Reaction / Comm: had some urinary retention problems after knee replacement last year-went home w/[facility], had never had problems in the past Past Psychological History: No Psychological Hx Reported Smoking Status: Never smoker Past Alcohol Use History: Occasional Past Drug Use History: None Reported - Past Family History Mother Family Medical History: No Reported History Sister(s) Family Medical History: Diabetes Mellitus, Hypertension Medications and Allergies Home Medications Medication Instructions Recorded Confirmed Type Cholecalciferol [Vitamin D3 (25 2,000 unit PO DAILY 10/12/18 04/26/20 History Mcg = 1000 Iu)] Multivitamins, Thera [Multivitamin 1 tab PO DAILY 10/12/18 04/26/20 History (formulary)] Saw [place] 500 mg PO DAILY 10/12/18 04/26/20 History HYDROcodone/APAP 7.5-325MG [[place] 1 - 2 tab PO Q6HR PRN #56 tab 10/30/18 04/26/20 Rx 7.5-325] Hydrochlorothiazide 12.5 mg PO DAILY 04/26/20 04/26/20 History [hydroCHLOROthiazide] Losartan Potassium [Cozaar] 100 mg PO DAILY 04/26/20 04/26/20 History Allergies Allergy/AdvReac Type Severity Reaction Status Date / Time No Known Allergies Allergy Verified 04/26/20 16:14 Physical Exam Vitals: Vital Signs Temp Pulse Pulse Resp BP BP Pulse Ox 05/02/20 19:03 16 05/02/20 18:05 78 119/84 98 05/02/20 17:50 50 L 128/79 98 05/02/20 17:35 53 L 130/85 97 05/02/20 17:20 62 127/85 98 05/02/20 17:05 49 L 143/88 98 05/02/20 16:50 50 L 126/82 97 05/02/20 16:35 49 L 121/76 97 05/02/20 16:20 48 L 128/77 97 05/02/20 16:05 48 L 139/83 97 05/02/20 16:00 50 L 47 L 16 05/02/20 15:50 97.1 F L 47 L 16 136/79 94 L 05/02/20 15:40 50 L 16 142/69 96 05/02/20 15:25 48 L 16 128/78 96 05/02/20 15:10 45 L 16 127/78 96 05/02/20 14:55 97.6 F 53 L 12 133/71 95 05/02/20 11:40 97.5 F L 59 L 16 151/89 97 Intake and Output 05/02/20 05/02/20 05/02/20 06:59 14:59 22:59 Intake Total 1351 200 Output Total 900 Balance 451 200 Intake: IV 1351 200 Output: Estimated Blood Loss 900 Other: Weight 106.6 kg 106.6 kg
[2020-05-03] MEDS: SODIUM CHLORIDE 0.9% 1,000 ML IV SCH ×2 (03:25→15:33)
[2020-05-03] MEDS: LACTATED RINGERS 1,000 ML IV SCH (05:42)
[2020-05-03 05:52] LABS: Basophils % (A) 0 %; Eosinophils % (A) 0 %; HCT 32.9 % (39.0-53.0); HGB 11.1 gm/dL (13.0-17.5); Lymphocytes # (A) 0.5 k/uL (1.0-4.8); Lymphocytes % (A) 6 %; MCH 28.7 pg (25.0-35.0); MCHC 33.8 g/dL (31.0-37.0); MCV 84.9 fL (80.0-100.0); Mean Platelet Volume 8.1; Monocytes # (A) 0.7 k/uL (0-1.0); Monocytes % (A) 8 %; Neutrophils # (A) 8.4 k/uL (1.3-7.7); Neutrophils % (A) 86 %; Platelet Count 138 k/uL (150-450); RBC 3.87 m/uL (4.30-5.90); RDW 13.4 % (11.5-15.5); WBC 9.8 k/uL (3.8-10.6)
--- NOTE | 2020-05-03 08:39 | P.PN ---
Subjective Progress Note Date: 05/03/20 This is a 80-year-old male who is status post revision right total hip arthroplasty. This is postoperative day #1 and patient is seen and evaluated at bedside with Dr. Jesus Calderón. Patient states that his pain is well controlled. Patient reports that he cannot dorsiflex the right ankle. Patient denies any fever/chills, abdominal pain, shortness of breath or chest pain. Objective - Vital Signs Vital signs: Vital Signs Temp 97.9 F 05/03/20 07:00 Pulse 63 05/03/20 07:00 Resp 17 05/03/20 07:00 BP 132/68 05/03/20 07:00 Pulse Ox 96 05/03/20 07:00 Intake & Output 05/02/20 05/03/20 05/03/20 18:59 06:59 18:59 Intake Total 1551 Output Total 900 2050 Balance 651 -2050 Weight 106.6 kg Intake: IV 1551 Output: Urine 1770 Post Void Residual 280 Estimated Blood Loss 900 Other: # Voids 1 - Exam Vital signs are stable. Patient is in no acute distress and is alert and oriented 3. Calf is soft and nontender to palpation. Dressing is clean, dry, and intact. Patient is unable to actively dorsiflex the right ankle. There is some decreased sensation to palpation of the first dorsal webspace of the right foot. Otherwise sensation is intact. Neurovascular status and circulatory status are intact. - Labs CBC & Chem 7: 05/03/20 05:28 Labs: Abnormal Lab Results - Last 24 Hours (Table) 05/03/20 Range/Units 05:28 RBC 3.87 L (4.30-5.90) m/uL Hgb 11.1 L (13.0-17.5) gm/dL Hct 32.9 L (39.0-53.0) % Plt Count 138 L (150-450) k/uL Neutrophils # 8.4 H (1.3-7.7) k/uL Lymphocytes # 0.5 L (1.0-4.8) k/uL Microbiology - Last 24 Hours (Table) 05/02/20 12:45 Gram Stain - Preliminary Hip - Right Wound Culture - Preliminary 05/02/20 12:45 Gram Stain - Preliminary Hip - Right Wound Culture - Preliminary 05/02/20 12:45 Anaerobic Culture - Preliminary Hip - Right 05/02/20 12:45 Anaerobic Culture - Preliminary Hip - Right Assessment and Plan (1) S/P revision of total hip Current Visit: Yes Status: Acute Code(s): Z96.649 - PRESENCE OF UNSPECIFIED ARTIFICIAL HIP JOINT SNOMED Code(s): 879967107 (2) Mechanical loosening of internal right hip prosthetic joint Current Visit: Yes Status: Acute Code(s): T84.030A - MECH LOOSENING OF INTERNAL RIGHT HIP PROSTHETIC JOINT, INIT SNOMED Code(s): 103852299 Plan: Continue routine postop care and pain control. Strict hip dislocation precautions and use of abductor pillow for 6 weeks. No crossing of the legs or bending past 90. Continue anticoagulation with aspirin. Weightbearing as tolerated with a walker. AFO ordered for right lower extremity. Leave dressing in place for 10 days. Appreciate input from medicine. Anticipate discharge home with homecare tomorrow.
[2020-05-03] MEDS: ASPIRIN 325 MG TAB PO SCH ×2 (08:45→20:52)
[2020-05-03] MEDS: MELOXICAM 7.5 MG TAB PO SCH (08:45)
[2020-05-03] MEDS: hydroCHLOROthiazide 12.5 MG CAP PO SCH (08:45)
[2020-05-03] MEDS: MULTIVITAMINS, THERA 1 EACH TAB PO SCH (08:46)
[2020-05-03] MEDS: LOSARTAN 50 MG TAB PO SCH (08:46)
[2020-05-03] MEDS: HYDROcodone/APAP 5-325MG 1 EACH TAB PO PRN (15:31)
[2020-05-03] MEDS: SENNOSIDES-DOCUSATE SODIUM 1 EACH TAB PO SCH (20:51)
--- NOTE | 2020-05-03 22:46 | P.PN ---
Progress Note - Text Progress Note Date: 05/03/20 - Chief Complaint Right hip surgery Consultation: This is a 80-year-old patient of Dr. arreguin from [place]. Chronic stable medical conditions include hypertension, osteoarthritis, possible BPH. Patient had a prior right hip replacement. Had malfunctioning of the same. Patient started having progressive increased pain in the right hip and trouble walking. Was with activity better with rest. Patient underwent revision right hip arthroplasty. Today-laying in bed. Feeling better. Had dropped his blood pressure yesterday evening. Had to be given fluid boluses. The tolerance some breakfast. Did work with therapy. Review of systems: Was done for constitutional, cardiovascular, GI, pulmonary. relevant finding as above Active Medications Hydrocodone Bitart/Acetaminophen (Hydrocodone/Apap 5-325mg 1 Each Tab) 1 each PO Q6HR PRN PRN Reason: Pain Scale 1 to 5 Last Admin: 05/03/20 15:31 Dose: 1 each Documented by: Hydrocodone Bitart/Acetaminophen (Hydrocodone/Apap 5-325mg 1 Each Tab) 2 each PO Q6HR PRN PRN Reason: Pain Scale 6 to 10 Aspirin (Aspirin 325 Mg Tab) 325 mg PO BID [facility] Last Admin: 05/03/20 20:52 Dose: 325 mg Documented by: Hydrochlorothiazide (Hydrochlorothiazide 12.5 Mg Cap) 12.5 mg PO DAILY [facility] Last Admin: 05/03/20 08:45 Dose: 12.5 mg Documented by: Hydromorphone HCl (Hydromorphone 0.5 Mg/0.5 Ml Syringe) 0.125 mg IVP Q3HR PRN PRN Reason: Pain Scale 1 to 3 Hydromorphone HCl (Hydromorphone 0.5 Mg/0.5 Ml Syringe) 0.25 mg IVP Q3HR PRN PRN Reason: Pain Scale 4 to 6 Hydromorphone HCl (Hydromorphone 0.5 Mg/0.5 Ml Syringe) 0.5 mg IVP Q3HR PRN PRN Reason: Pain Scale 7 to 10 Lactated Ringer's (Lactated Ringers) 1,000 mls @ 20 mls/hr IV .Q24H [facility] Last Admin: 05/03/20 05:42 Dose: Not Given Documented by: Sodium Chloride (Saline 0.9%) 1,000 mls @ 65 mls/hr IV .[id number] [facility] Last Admin: 05/03/20 15:33 Dose: 65 mls/hr Documented by: Losartan Potassium (Losartan 50 Mg Tab) 100 mg PO DAILY [facility] Last Admin: 05/03/20 08:46 Dose: 100 mg Documented by: Magnesium Hydroxide (Magnesium Hydroxide 2,400 Mg/10 Ml Cup) 2,400 mg PO DAILY PRN PRN Reason: Constipation Meloxicam (Meloxicam 7.5 Mg Tab) 7.5 mg PO DAILY [facility] Last Admin: 05/03/20 08:45 Dose: 7.5 mg Documented by: Multivitamins (Multivitamins, Thera 1 Each Tab) 1 each PO DAILY [facility] Last Admin: 05/03/20 08:46 Dose: 1 each Documented by: Naloxone HCl (Naloxone 0.4 Mg/Ml 1 Ml Vial) 0.2 mg IV Q2M PRN PRN Reason: Opioid Reversal Ondansetron HCl (Ondansetron 4 Mg/2 Ml Vial) 4 mg IVP Q8H PRN PRN Reason: Nausea And Vomiting Senna/Docusate Sodium (Sennosides-Docusate Sodium 1 Each Tab) 2 each PO HS [facility] Last Admin: 05/03/20 20:51 Dose: 2 each Documented by: Physical examination: VITAL SIGNS:98.3, 69, 18, 113/55, 96% room air GENERAL: BMI 28.6, laying in bed, EYES: Pupils equal. Conjunctiva normal. NECK: JVD not raised; masses not palpable. HEART: First and second heart sounds are normal; no edema. LUNGS: Respiratory rate normal; clear to auscultation. ABDOMEN: Soft, nontender, liver spleen not palpable, no masses palpable. PSYCH: Alert and oriented x3; mood and affect normal. 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 and treatment plan. Add iron supplementation.care was discussed with the patient. Thank you Dr. Calderón
[2020-05-04] MEDS: HYDROcodone/APAP 5-325MG 1 EACH TAB PO PRN (00:24)
[2020-05-04] MEDS: LACTATED RINGERS 1,000 ML IV SCH (06:57)
[2020-05-04 06:58] LABS: HCT 30.7 % (39.0-53.0); Hypochromasia Slight; MCH 27.6 pg (25.0-35.0); MCHC 31.5 g/dL (31.0-37.0); MCV 87.8 fL (80.0-100.0); Mean Platelet Volume 8.9; Platelet Count 107 k/uL (150-450); RBC 3.49 m/uL (4.30-5.90); RDW 13.5 % (11.5-15.5)
[2020-05-04 07:00] LABS: HGB 9.6 gm/dL (13.0-17.5)
[2020-05-04 07:20] VITALS: BP 147/80; PULSE 64; RESP 20; TEMP 98.1
[2020-05-04] MEDS: MELOXICAM 7.5 MG TAB PO SCH (07:46)
[2020-05-04] MEDS: hydroCHLOROthiazide 12.5 MG CAP PO SCH (07:47)
[2020-05-04] MEDS: ASPIRIN 325 MG TAB PO SCH (07:47)
[2020-05-04] MEDS: MULTIVITAMINS, THERA 1 EACH TAB PO SCH (07:47)
[2020-05-04] MEDS: LOSARTAN 50 MG TAB PO SCH (07:47)
[2020-05-04] MEDS: SODIUM CHLORIDE 0.9% 1,000 ML IV SCH (09:03)
--- NOTE | 2020-05-04 09:45 | P.DS ---
Providers Date of admission: 05/03/20 10:53 Expected date of discharge: 05/04/20 Attending physician: Jesus Calderón Consults: 05/02/20 11:05 Consult Physician Routine Consulting Provider: Behzad Banks Consult Reason/Comments: medical management Do you want consulting provider notified?: Yes Primary care physician: Wyatt Hernandeztaio - Discharge Diagnosis(es) (1) S/P revision of total hip Current Visit: Yes Status: Acute (2) Mechanical loosening of internal right hip prosthetic joint Current Visit: Yes Status: Acute (3) Foot drop, right foot Current Visit: Yes Status: Acute Hospital Course: This is a 80-year-old male who 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 The patient presents for evaluation. After discussion and consideration patient elects to proceed with revision right total hip arthroplasty. The patient is seen preoperatively by Dr. Calderón and medically cleared for surgery by their primary care physician. Patient is admitted to [facility] on 05/02/2020 for revision right total hip arthroplasty. The procedures performed without complication. The patient is doing well postoperatively. The patient is being treated postoperatively with an AFO for right side foot drop. Labs and vital signs are stable on day of discharge. On day of discharge patient's hip incision is healing well. There is minimal erythema. There is no drainage noted at this time. There is minimal soft tissue swelling to the hip and thigh. Patient is unable to dorsiflex the right foot and ankle. There is some decreased sensation to the first dorsal webspace of the right foot. Calf is soft and nontender to palpation. Neurovascular status to the right lower extremity is intact. Patient is discharged home in good condition. Opioid start talking form is reviewed and signed at patient bedside. Please see med rec for accurate list of home medications. Plan - Discharge Summary Discharge Rx Participant: Yes New Discharge Prescriptions: New Aspirin 325 mg PO BID #60 tab HYDROcodone/APAP 5-325MG [[place] 5-325] 1 - 2 tab PO Q6HR PRN #48 tab PRN Reason: Pain Sennosides [Senokot] 2 tab PO DAILY PRN #60 tablet PRN Reason: Constipation No Action [place] 500 mg PO DAILY Multivitamins, Thera [Multivitamin (formulary)] 1 tab PO DAILY Cholecalciferol [Vitamin D3 (25 Mcg = 1000 Iu)] 2,000 unit PO DAILY HYDROcodone/APAP 7.5-325MG [[place] 7.5-325] 1 - 2 tab PO Q6HR PRN #56 tab PRN Reason: Pain Losartan Potassium [Cozaar] 100 mg PO DAILY Hydrochlorothiazide [hydroCHLOROthiazide] 12.5 mg PO DAILY Discharge Medication List Cholecalciferol [Vitamin D3 (25 Mcg = 1000 Iu)] 2,000 unit PO DAILY 10/12/18 [History] Multivitamins, Thera [Multivitamin (formulary)] 1 tab PO DAILY 10/12/18 [History] [place] 500 mg PO DAILY 10/12/18 [History] HYDROcodone/APAP 7.5-325MG [[place] 7.5-325] 1 - 2 tab PO Q6HR PRN #56 tab 10/30/18 [Rx] Hydrochlorothiazide [hydroCHLOROthiazide] 12.5 mg PO DAILY 04/26/20 [History] Losartan Potassium [Cozaar] 100 mg PO DAILY 04/26/20 [History] Aspirin 325 mg PO BID #60 tab 05/03/20 [Rx] HYDROcodone/APAP 5-325MG [[place] 5-325] 1 - 2 tab PO Q6HR PRN #48 tab 05/03/20 [Rx] Sennosides [Senokot] 2 tab PO DAILY PRN #60 tablet 05/03/20 [Rx] Follow up Appointment(s)/Referral(s): Jesus Calderón DO [Doctor of Osteopathic Medicine] - 2 Weeks Mauricio Loomis [NON-STAFF] - As Needed (AFO brace) Activity/Diet/Wound Care/Special Instructions: [facility]: #[phone] Weightbearing as tolerated with walker. Leave dressing intact. Dressing may be removed by home care nurse or by patient in 10 days. May shower with dressing on. Maintain AFO when up and walking. Strict hip dislocation precautions: Continue use of abductor pillow for 6 weeks while sleeping. No bending past 90. Do not cross the legs. Please take aspirin 325mg twice daily for 30 days to prevent blood clots. Recommend use of compression stockings daily until follow up to help prevent swelling and blood clots. May remove at night before sleeping. Please follow-up with [facility] in 2 weeks and call with any questions or concerns, . Discharge Disposition: HOME WITH HOME HEALTH SERVICES
--- NOTE | 2020-05-04 18:26 | P.PN ---
Progress Note - Text Progress Note Date: 05/04/20 - Chief Complaint Right hip surgery Consultation: This is a 80-year-old patient of Dr. arreguin from [place]. Chronic stable medical conditions include hypertension, osteoarthritis, possible BPH. Patient had a prior right hip replacement. Had malfunctioning of the same. Patient started having progressive increased pain in the right hip and trouble walking. Was with activity better with rest. Patient underwent revision right hip arthroplasty. Had hypotension from blood loss anemia. Given IV fluids. Blood pressure corrected. Today-feeding well. Blood pressures, has come up. no lightheadedness. Using a walker. Care discussed with the patient. Review of systems: Was done for constitutional, cardiovascular, GI, pulmonary. relevant finding as above Current medications reviewed in today's electronic records Physical examination: VITAL SIGNS: 98.1, 64, 20, 147/80, 94% on room air GENERAL: Sitting up, comfortable EYES: Pupils equal. Conjunctiva normal. NECK: JVD not raised; masses not palpable. HEART: First and second heart sounds are normal; no edema. LUNGS: Respiratory rate normal; clear to auscultation. ABDOMEN: Soft, nontender, liver spleen not palpable, no masses palpable. PSYCH: Alert and oriented x3; mood and affect normal. 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 and treatment plan. Discussed with patient about iron supplementation. We'll taken [id number]. Follow with PCP. Thank you Dr. Calderón
== END 2020-05-04 12:45 | disposition home health service (06) ==
LOC: OR 10:36 → EDSTATUS 11:30 → 4SSUR 14:55 → OR 05-03 10:53 → 4SSUR 05-03 10:53
PROVIDERS: ADMIT Orthopaedic Surgery; ATTEND Orthopaedic Surgery
DX: T84.060A Wear of articular bearing surface of internal prosthetic right hip joint, initial encounter (principal); T84.030A Mechanical loosening of internal right hip prosthetic joint, initial encounter; I95.9 Hypotension, unspecified; D62 Acute posthemorrhagic anemia; S76.211A Strain of adductor muscle, fascia and tendon of right thigh, initial encounter; M16.11 Unilateral primary osteoarthritis, right hip; I10 Essential (primary) hypertension; R42 Dizziness and giddiness; R53.83 Other fatigue; R32 Unspecified urinary incontinence; I83.893 Varicose veins of bilateral lower extremities with other complications; R60.0 Localized edema; M21.371 Foot drop, right foot; Z79.891 Long term (current) use of opiate analgesic; Z79.899 Other long term (current) drug therapy; Z98.890 Other specified postprocedural states; Z86.73 Personal history of transient ischemic attack (TIA), and cerebral infarction without residual deficits; Z87.19 Personal history of other diseases of the digestive system; Z96.653 Presence of artificial knee joint, bilateral; Z96.642 Presence of left artificial hip joint; Z98.41 Cataract extraction status, right eye; Z98.42 Cataract extraction status, left eye; Z91.89 Other specified personal risk factors, not elsewhere classified; Z86.79 Personal history of other diseases of the circulatory system; Z83.3 Family history of diabetes mellitus; Z82.49 Family history of ischemic heart disease and other diseases of the circulatory system; X58.XXXA Exposure to other specified factors, initial encounter; Y79.2 Prosthetic and other implants, materials and accessory orthopedic devices associated with adverse incidents
CPT/HCPCS: 27134; 97116; 97110; 97161; 86891; 85025; 85027; 87070; 87205; 87075; 73501; G0378 ×2; P9022; C1776; C1713; J2250; J0171; J1644; J1100; J0690 ×3; J2405; J2001; J3010; J1885; J2795; J0735; J1170; 86850; 86900; 86901

== ENCOUNTER → 2020-06-23 | Outpatient (CLI) | payer MEDICARE ==
--- NOTE | 2020-06-23 12:02 | US ---
EXAMINATION TYPE: US venous doppler duplex LE DATE OF EXAM: 06/23/2020 11:31 AM COMPARISON: NONE CLINICAL HISTORY: R60.0 Edema of lower extremities. Recent right hip replacement. Swelling SIDE PERFORMED: bilateral TECHNIQUE: The lower extremity deep venous system is examined utilizing real time linear array sonog raymundo with graded compression, doppler sonography and color-flow sonography. VESSELS IMAGED: External Iliac Vein (EIV) Common Femoral Vein Deep Femoral Vein Greater Saphenous Vein * Femoral Vein Popliteal Vein Small Saphenous Vein * Proximal Calf Veins (* superficial vessels) Right Leg: Positive for DVT right popliteal vein to proximal calf veins Left Leg: Negative for DVT Preliminary results were provided to Dr. Aviles at the time of exam. IMPRESSION: 1. Right lower extremity positive for deep venous thrombosis popliteal and proximal calf. 2. Left lower extremity negative for deep venous thrombosis
== END | disposition home or self-care (01) ==
LOC: RADUSWWP 11:03
PROVIDERS: ATTEND Family Medicine
DX: I82.431 Acute embolism and thrombosis of right popliteal vein (principal)
CPT/HCPCS: 93970

== ENCOUNTER → 2020-09-05 | Outpatient (CLI) | payer MEDICARE ==
--- NOTE | 2020-09-05 13:24 | US ---
EXAMINATION TYPE: US venous doppler duplex LE DATE OF EXAM: 09/05/2020 12:47 PM COMPARISON: US CLINICAL HISTORY: I82.409 Acute embolism and thrombosis. Patient on Xeralto, prior DVT right pop vein . SIDE PERFORMED: Bilateral TECHNIQUE: The lower extremity deep venous system is examined utilizing real time linear array sonog raymundo with graded compression, doppler sonography and color-flow sonography. VESSELS IMAGED: Common Femoral Vein Deep Femoral Vein Greater Saphenous Vein * Femoral Vein Popliteal Vein Small Saphenous Vein * Proximal Calf Veins (* superficial vessels) Grayscale, color Doppler, spectral Doppler imaging performed of the veins of the lower extremities. Right Leg: Positive for DVT. The anterior branch of the referral popliteal vein shows low level inte rnal echoes consistent with thrombus, without flow, and is non compressible. The posterior branch is patent. Left Leg: Left common femoral, superficial femoral, popliteal veins all compress normally and show no abnormal luminal echoes. Negative for DVT IMPRESSION: Deep venous thrombosis right popliteal vein, report relayed to Dr. Louise via cir[facility]
== END | disposition home or self-care (01) ==
LOC: RADUSWWP 12:14
PROVIDERS: ATTEND Family Medicine
DX: I82.431 Acute embolism and thrombosis of right popliteal vein (principal)
CPT/HCPCS: 93970

== ENCOUNTER → 2023-05-03 | Outpatient (CLI) | payer MEDICARE ==
--- NOTE | 2023-05-04 08:38 | MR ---
EXAMINATION TYPE: MR lumbar spine wo con DATE OF EXAM: 05/03/2023 COMPARISON: 01/13/2018 HISTORY: Low back pain into left buttocks and leg TECHNIQUE: Multiplanar, multisequence images of the lumbar spine were acquired without IV contrast. T12-L1: Moderate disc desiccation. Moderate circumferential disc bulge greatest posteriorly with effa cement of the ventral thecal sac. Mild central stenosis noted. Bilateral neural foraminal encroachment. L1-L2: Severe disc desiccation with moderate circumferential disc bulge. Hypertrophy of the ligamentu m flavum and facet joint arthropathy resulting in moderate to severe central stenosis improved from p rior examination. Priestly noted disc herniation is improved significantly as well. L2-L3: Disc desiccation with circumferential disc bulge greatest posteriorly. Hypertrophy ligamentum flavum and facet joint arthropathy. Mild to moderate central stenosis. Bilateral neural foraminal enc roachment. L3-L4: Severe disc desiccation with moderate circumferential disc bulge. Hypertrophy of the ligamentu m flavum and facet joint arthropathy resulting in moderate to severe central stenosis. Severe bilater al neural foraminal encroachment. L4-L5: Severe disc desiccation posterior disc bulge. Hypertrophy of the ligamentum flavum and facet j oint arthropathy resulting in mild central stenosis. Moderate bilateral foraminal encroachment. L5-S1: Grade 2 anterolisthesis L5 on S1 severe disc desiccation. Severe facet joint arthropathy. Dist ortion of the thecal sac with bilateral lateral recess stenosis and mild central stenosis. Severe amarilis ateral foraminal encroachment. Lumbar segments are intact. No paraspinal masses are identified. Conus medullaris has a normal appe arance. IMPRESSION: 1. Multilevel degenerative disc disease and multilevel central stenosis as outlined above.
== END | disposition home or self-care (01) ==
LOC: RADMRIMAIN 10:00
PROVIDERS: ATTEND Physical Medicine & Rehabilitation
DX: M43.16 Spondylolisthesis, lumbar region (principal); M47.26 Other spondylosis with radiculopathy, lumbar region; M41.24 Other idiopathic scoliosis, thoracic region; M48.062 Spinal stenosis, lumbar region with neurogenic claudication; M51.17 Intervertebral disc disorders with radiculopathy, lumbosacral region; G62.9 Polyneuropathy, unspecified; M48.061 Spinal stenosis, lumbar region without neurogenic claudication; M25.551 Pain in right hip; M25.552 Pain in left hip
CPT/HCPCS: 72148

== ENCOUNTER → 2023-07-23 | Outpatient (CLI) | payer MEDICARE ==
[2023-07-23 19:55] LABS: VLDL Calculation 10.32 mg/dL (5.00-40.00)
[2023-07-23 19:56] LABS: ALT 43 U/L (10-49); AST 30 U/L (14-35); Albumin 4.3 g/dL (3.8-4.9); Albumin/Globulin Ratio 2.26 Ratio (1.60-3.17); Alkaline Phosphatase 41 U/L (41-126); BUN/Creat Ratio 18.71 Ratio (12.00-20.00); Blood Urea Nitrogen 13.1 mg/dL (9.0-27.0); Calcium 9.5 mg/dL (8.7-10.3); Carbon Dioxide 27.6 mmol/L (21.6-31.8); Chloride 103 mmol/L (96-109); Globulin 1.9 g/dL (1.6-3.3); Glucose 106 mg/dL (70-110); LDL Cholesterol,Calculated 74.5 mg/dL (0.0-131.0); Potassium 4.4 mmol/L (3.5-5.5); Sodium 141 mmol/L (135-145); Total Bilirubin 0.5 mg/dL (0.3-1.2); Total Protein 6.2 g/dL (6.2-8.2)
[2023-07-23 21:06] LABS: Basophils # (A) 0.04 X 10*3/uL (0.00-0.10); Basophils % (A) 0.7 %; Eosinophils # (A) 0.06 X 10*3/uL (0.04-0.35); Eosinophils % (A) 1.1 %; HCT 45.3 % (39.6-50.0); HGB 14.5 g/dL (13.0-17.0); Lymphocytes # (A) 0.94 X 10*3/uL (0.90-5.00); Lymphocytes % (A) 17.3 %; MCH 27.9 pg (27.0-32.0); MCV 87.1 FL (80.0-97.0); Mean Platelet Volume 11.1 FL (9.5-12.2); Monocytes # (A) 0.55 X 10*3/uL (0.20-1.00); Monocytes % (A) 10.1 %; NRBC Per 100 WBC 0 X 10*3/uL (0.00-0.01); Neutrophils # (A) 3.81 X 10*3/uL (1.80-7.70); Neutrophils % (A) 70.1 %; Platelet Count 177 X 10*3/uL (140-440); RDW 13.5 % (11.5-14.5); WBC 5.44 X 10*3/uL (4.50-10.00)
== END | disposition home or self-care (01) ==
LOC: LABWHC1 12:54
PROVIDERS: ATTEND Internal Medicine
DX: Z12.5 Encounter for screening for malignant neoplasm of prostate (principal); I10 Essential (primary) hypertension
CPT/HCPCS: 80061; 80053; 85025; 36415; G0103

== ENCOUNTER → 2024-11-09 | Outpatient (CLI) | payer MEDICARE ==
[2024-11-09 20:21] LABS: Chol/HDL Ratio 2.43 Ratio; LDL Cholesterol,Calculated 74.9 mg/dL (0.0-131.0)
== END | disposition home or self-care (01) ==
LOC: LABWHC1 14:38
PROVIDERS: ATTEND Internal Medicine
DX: I10 Essential (primary) hypertension (principal)
CPT/HCPCS: 36415; 80061